=== PATIENT | female | born 1995 | race American Indian/Alaskan Native ===

== ENCOUNTER 2017-06-28 22:39 | Emergency (ER) | payer BC ==
[2017-06-28] MEDS ORDERED: TYLENOL ONE (23:49)
[2017-06-28] MEDS ORDERED: TYLENOL PO ONE (23:51)
[2017-06-29 00:05] LABS: Hematocrit 36.5 % (30.3-42.9); Hemoglobin 11.8 gm/dl (10.1-14.3); Mean Corpuscular HGB Conc 32 % (30-34); Mean Corpuscular Volume 80 fl (79-97); Platelet Count 246 K/mm3 (140-440); Red Blood Count 4.55 M/mm3 (3.65-5.03); Red Cell Distribution Width 15.4 % (13.2-15.2); White Blood Count 6.8 K/mm3 (4.5-11.0)
[2017-06-29 00:06] LABS: Mean Corpuscular Hemoglobin 26 pg (28-32)
--- NOTE | 2017-06-29 02:38 | Ultrasound Report ---
FINAL REPORT EXAM: US PELVIC COMPLETE HISTORY: vaginal bleeding states 6 weeks TECHNIQUE: Transabdominal and transvaginal sonography of the pelvis. PRIORS: None. FINDINGS: The uterus measures 6.6 x 4.1 x 5.4 cm and appears grossly unremarkable. The endometrial stripe measures 7 mm in AP dimension. No intrauterine fluid collection or IUP identified. The right ovary measures 2.5 x 1.7 x 1.7 cm and is grossly unremarkable. The left ovary measures 3.6 x 3.1 x 2.8 cm and contains probable prominent follicle measuring approximately 1.2 cm. Questionable, complex cystic focus in right adnexa interposed between uterus and right ovary measuring approximately 2 cm, nonspecific. No other adnexal masses or significant free peritoneal fluid. IMPRESSION: 1. No IUP identified and complex cystic focus in right adnexa, nonspecific. Possibilities include early gestation, early failure, or ectopic . Correlation with serial beta-hCG levels and follow-up ultrasound may help in further evaluation.
[2017-06-29 05:12] LABS: Anisocytosis 1+; Blastocytes % (Manual) 0 %; Diff Status Complete; Eosinophils % (Manual) 0 % (0.0-4.3); Large Platelets Rare
--- NOTE | 2017-06-29 10:08 | Emergency Department Report ---
HPI - General Chief Complaint: Vaginal Bleeding Time Seen by Provider: 06/29/17 10:03 - HPI HPI: Chief complaint: Vaginal bleeding This is a 22-year-old female who presented to the ED with vaginal bleeding, for 2 days. Patient stated that she took a test at home and it was positive. She stated the bleeding started on June 21. Initially stopped and started again 3 days prior to ER visit. Complain of mild pelvic discomfort, nausea. ED Past Medical Hx - Past Medical History Previous Medical History?: Yes Hx Congestive Heart Failure: No Hx Diabetes: No Hx Asthma: No Hx COPD: No Hx HIV: No Additional medical history: Chronic abdominal pain, pancreatitis - Surgical History Hx Cholecystectomy: Yes Additional Surgical History: Surgery was Sunday 08/26 - Family History Family history: hypertension - Social History Smoking Status: Never Smoker Substance Use Type: None - Medications Home Medications: Home Medications Medication Instructions Recorded Confirmed Last Taken Type Ondansetron [Zofran TAB] 4 mg PO Q8HR PRN #20 tablet 06/29/17 Unknown Rx ED Review of Systems ROS: Stated complaint: PREG/VAG BLEEDING/ABD PAIN Other details as noted in HPI Comment: All other systems reviewed and negative Constitutional: no symptoms reported Genitourinary: other (vaginal bleeding) Physical Exam - Physical Exam Vital Signs: Vital Signs 06/28/17 06/29/17 23:37 00:17 Temperature 98.5 F Pulse Rate 87 Respiratory 18 20 Rate Blood Pressure 122/79 O2 Sat by Pulse 100 Oximetry Physical Exam: Gen. alert and oriented 3 in no distress Head atraumatic normocephalic Eyes PERR LA EOMI Chest regular rate and rhythm normal S1-S2 lungs clear bilaterally Abdomen soft nondistended Back no point tenderness paravertebral tenderness Neuro no focal deficit. Psych normal mood. : Patient refused ED Course Vital Signs 06/28/17 06/29/17 23:37 00:17 Temperature 98.5 F Pulse Rate 87 Respiratory 18 20 Rate Blood Pressure 122/79 O2 Sat by Pulse 100 Oximetry ED Medical Decision Making - Lab Data Result diagrams: 06/28/17 23:48 Critical care attestation.: If time is entered above; I have spent that time in minutes in the direct care of this critically ill patient, excluding procedure time. ED Disposition Clinical Impression: Abnormal vaginal bleeding Disposition: DC-01 TO HOME OR SELFCARE Is pt being admited?: No Does the pt Need Aspirin: No Condition: Stable Prescriptions: Ondansetron [Zofran TAB] 4 mg PO Q8HR PRN #20 tablet PRN Reason: Nausea Referrals: ALEX MORALES MD [Primary Care Provider] - 3-5 Days KEVIN BYRD MD [Staff Physician] - 3-5 Days
[2017-06-29 10:36] VITALS: BP 103/59
== END 2017-06-29 11:46 | disposition home or self-care (01) ==
LOC: ED 22:39
DX: N93.8 Other specified abnormal uterine and vaginal bleeding (principal); Z88.8 Allergy status to other drugs, medicaments and biological substances
CPT/HCPCS: 36415; 76830; 76856; 84702; 85007; 85025; 86850; 86900; 86901

== ENCOUNTER 2017-08-05 14:57 | Emergency (ER) | payer BC ==
[2017-08-05 15:52] VITALS: BP 111/77
[2017-08-05 16:19] LABS: Basophils % (Auto) 0.6 % (0.0-1.8); Eosinophils % (Auto) 0.5 % (0.0-4.3); Hematocrit 35.3 % (30.3-42.9); Hemoglobin 11.2 gm/dl (10.1-14.3); Mean Corpuscular HGB Conc 32 % (30-34); Mean Corpuscular Volume 80 fl (79-97); Platelet Count 229 K/mm3 (140-440); Red Blood Count 4.41 M/mm3 (3.65-5.03); Red Cell Distribution Width 16.2 % (13.2-15.2); White Blood Count 6.1 K/mm3 (4.5-11.0)
[2017-08-05 16:24] LABS: Mean Corpuscular Hemoglobin 25 pg (28-32)
== END 2017-08-06 00:10 | disposition left against medical advice (07) ==
LOC: ED 14:57
DX: O03.9 Complete or unspecified spontaneous abortion without complication (principal); Z88.8 Allergy status to other drugs, medicaments and biological substances; Z3A.10 10 weeks gestation of pregnancy; Z53.21 Procedure and treatment not carried out due to patient leaving prior to being seen by health care provider
CPT/HCPCS: 36415; 84702; 85025

== ENCOUNTER 2017-11-24 16:45 | Emergency (ER) | payer BC ==
--- NOTE | 2017-11-24 17:19 | Emergency Department Report ---
Chief Complaint: Nausea/Vomiting/Diarrhea Stated Complaint: VOMITING Time Seen by Provider: 11/24/17 17:19 - HPI History of Present Illness: Patient reports that she is having abdominal pain for 2 days. Patient has a history of ovarian cyst that has been here for treatment in the past. She is reporting nausea with vomiting. Patient has emesis bag in her hand and she is stating that she is having abdominal pain to her lower abdomen 10 out of 10 crampy and achy. Pain is constant. Denies any diarrhea. Denies any vaginal bleeding or discharge. Patient has a history of chronic abdominal pain and pancreatitis. She's had her gallbladder removed in the past. Denies any fever or chills. Denies any urinary burning frequency or urgency. - ROS Review of Systems: All systems are negative unless stated in HPI above - Exam Vital Signs: Vital Signs 11/24/17 16:59 Temperature 98.9 F Pulse Rate 120 H Respiratory 20 Rate Blood Pressure 120/86 O2 Sat by Pulse 100 Oximetry Physical Exam: Gen.: This is a 22-year-old female that appears to be in mild distress she is bent over and holding her abdomen. Reported abdominal pain. She is nontoxic in appearance. CV: Tachycardic, she is with anxiety and crying. S1 and S2. No murmur. Regular rhythm Abdomen: Tender to palpate. Patient crying with palpation. Abdomen is flat, soft. No rigidity or distention. No CVA tenderness. Normal bowel sounds MSE screening note: Focused history and physical exam performed. Due to findings the following was ordered: given Zofran 4 mg IV in triage area for nausea ED Medical Decision Making - Medical Decision Making MDM: Patient screened by provider in triage area. Appropriate protocol initiated and patient to be seen in main ED by ED Disposition for MSE Condition: Stable
[2017-11-24] MEDS ORDERED: ZOFRAN IM ONE (17:20)
[2017-11-24 18:48] LABS: Basophils % (Auto) 0.7 % (0.0-1.8); Eosinophils % (Auto) 0.1 % (0.0-4.3); Hematocrit 33.5 % (30.3-42.9); Mean Corpuscular HGB Conc 33 % (30-34); Mean Corpuscular Volume 78 fl (79-97); Platelet Count 339 K/mm3 (140-440); Red Blood Count 4.32 M/mm3 (3.65-5.03); Red Cell Distribution Width 15.1 % (13.2-15.2); White Blood Count 7.3 K/mm3 (4.5-11.0)
[2017-11-24 18:54] LABS: Mean Corpuscular Hemoglobin 25 pg (28-32)
[2017-11-24 19:00] LABS: Alanine Aminotransferase 14 units/L (7-56); Albumin 4.4 g/dL (3.9-5); Albumin/Globulin Ratio 1.1 %; Alkaline Phosphatase 57 units/L (35-129); Anion Gap 22 mmol/L; BUN/Creatinine Ratio 11; Blood Urea Nitrogen 10 mg/dL (7-17); Calcium 9.9 mg/dL (8.4-10.2); Carbon Dioxide 24 mmol/L (22-30); Chloride 100.4 mmol/L (98-107); Glucose 125 mg/dL (65-100); Lipase 18 units/L (13-60); Potassium 3.3 mmol/L (3.6-5.0); Sodium 143 mmol/L (137-145); Total Protein 8.4 g/dL (6.3-8.2)
[2017-11-25] MEDS ORDERED: ZOFRAN ONE (05:02)
[2017-11-25] MEDS ORDERED: DILAUDID ONE (05:02)
[2017-11-25] MEDS ORDERED: NACL 0.9% 1000 ML 2,000 ML ONE (05:02)
[2017-11-25] MEDS ORDERED: ZOFRAN IV ONE ×2 (05:07→06:42)
[2017-11-25] MEDS ORDERED: DILAUDID IV ONE ×3 (05:07→10:23)
[2017-11-25] MEDS ORDERED: NACL 0.9% 1000 ML 1,000 ML IV ONE ×2 (05:07→06:10)
[2017-11-25] MEDS ORDERED: K-DUR PO ONE (06:43)
[2017-11-25] MEDS ORDERED: PEPCID IV ONE (06:43)
[2017-11-25] MEDS ORDERED: NACL ONE ×2 (06:57→07:16)
--- NOTE | 2017-11-25 07:01 | Emergency Department Report ---
ED Abdominal Pain HPI - General Chief Complaint: Nausea/Vomiting/Diarrhea Stated Complaint: VOMITING Time Seen by Provider: 11/24/17 17:19 Source: patient, old records reviewed (multiple visits in the past for chronic right-sided abdominal pain.) Mode of arrival: Ambulatory Limitations: No Limitations - History of Present Illness Initial Comments: 22-year-old female with a past medical history previous cholecystectomy and ERCP induced pancreatitis presents to the hospital with complaints of abdominal pain 2 days. Pain is in no suprapubic or right lower quadrant, right upper quadrant, and epigastric area. Pain is intermittent and described as stabbing, sharp, and kneading. Pain is worse with palpation and vomiting. No alleviating factors. Pain is moderate to severe in intensity. Most episodes of vomiting reported blood streaked. Patient also complains of diarrhea feels similar to when she was in the hospital and admitted with C. difficile. Subjective fever reported. No melena reported. No travel, recent antibiotic use, or sick contacts reported. Patient denies vaginal discharge but states she has irregular menstrual cycle. Patient was seen here in May 2017 with the diagnosis of , miscarriage, and right ovarian cyst. Severity scale (0 -10): 6 - Related Data Previous Rx's Medication Instructions Recorded Last Taken Type HYDROcodone/APAP 5-325 [[place] 1 each PO Q6HR PRN #12 tablet 11/25/17 Unknown Rx 5/325] Nitrofurantoin Monohyd/M-Cryst 100 mg PO BID #14 capsule 11/25/17 Unknown Rx [Macrobid 100 mg Capsule] Ondansetron [Zofran Odt] 4 mg PO Q8HR PRN #20 tab.rapdis 11/25/17 Unknown Rx Promethazine [Phenergan] 25 mg [place] Q6HR PRN #15 supp.rect 11/25/17 Unknown Rx traMADol [Ultram 50 MG tab] 50 mg PO Q6HR PRN #15 tablet 11/25/17 Unknown Rx Allergies Allergy/AdvReac Type Severity Reaction Status Date / Time hydrocodone Allergy Unknown Verified 08/05/17 15:46 oxycodone [Oxycodone] AdvReac Nausea Verified 08/05/17 15:46 ED Review of Systems ROS: Stated complaint: VOMITING Other details as noted in HPI Comment: All other systems reviewed and negative Other: Constitutional: As per HPI Eyes: No eye pain visual changes or discharge ENT: Dry mouth Neck: Denies pain Respiratory: Denies cough wheezing shortness of breath Cardiovascular: Denies chest pain, palpitations, syncope GI: As per HPI : Denies dysuria Musculoskeletal: Denies back pain, joint swelling Skin: Denies rash, lesions, erythema Neurologic: Denies headache, numbness, weakness Psychiatric: Denies suicidal ideation, hallucinations ED Past Medical Hx - Past Medical History Previous Medical History?: Yes Hx Congestive Heart Failure: No Hx Diabetes: No Hx Asthma: No Hx COPD: No Hx HIV: No Additional medical history: Chronic abdominal pain, pancreatitis - Surgical History Past Surgical History?: Yes Hx Cholecystectomy: Yes Additional Surgical History: Surgery was Sunday 08/26 - Social History Smoking Status: Never Smoker Substance Use Type: Alcohol, Prescribed - Medications Home Medications: Home Medications Medication Instructions Recorded Confirmed Last Taken Type HYDROcodone/APAP 5-325 [[place] 1 each PO Q6HR PRN #12 tablet 11/25/17 Unknown Rx 5/325] Nitrofurantoin Monohyd/M-Cryst 100 mg PO BID #14 capsule 11/25/17 Unknown Rx [Macrobid 100 mg Capsule] Ondansetron [Zofran Odt] 4 mg PO Q8HR PRN #20 tab.rapdis 11/25/17 Unknown Rx Promethazine [Phenergan] 25 mg [place] Q6HR PRN #15 supp.rect 11/25/17 Unknown Rx traMADol [Ultram 50 MG tab] 50 mg PO Q6HR PRN #15 tablet 11/25/17 Unknown Rx ED Physical Exam - General Limitations: No Limitations - Other Other exam information: General: No limitations, patient is alert in no acute distress Head exam: Atraumatic, normocephalic Eyes exam: Normal appearance, nonicteric sclerae ENT: Dry mucous membranes Neck exam: Normal inspection, full range of motion, no meningismus nontender Respiratory exam: Clear to auscultation bilateral, no wheezes, rales, crackles Cardiovascular: Normal rate and rhythm, normal heart sounds Abdomen: Soft, nondistended, and nontender, increased bowel sounds. No rebound or guarding. Tenderness at the suprapubic, right lower quadrant, question, with maximal tenderness in the epigastric area. Extremity: Full range of motion normal inspection no deformity Back: Normal Inspection, full range of motion, no tenderness Neurologic: Alert, oriented x3, cranial nerves intact, no motor or sensory deficit Psychiatric: normal affect, normal mood Skin: Warm, dry, intact ED Course Vital Signs 11/24/17 11/25/17 11/25/17 16:59 00:51 04:30 Temperature 98.9 F 99.5 F 98.4 F Pulse Rate 120 H 93 H 85 Respiratory 20 16 16 Rate Blood Pressure 120/86 140/89 Blood Pressure 132/64 [Left] O2 Sat by Pulse 100 99 99 Oximetry 11/25/17 11/25/17 11/25/17 05:00 06:00 06:30 Temperature Pulse Rate Respiratory Rate Blood Pressure 130/84 117/59 107/53 Blood Pressure [Left] O2 Sat by Pulse 100 99 99 Oximetry 11/25/17 07:30 Temperature Pulse Rate Respiratory 16 Rate Blood Pressure Blood Pressure [Left] O2 Sat by Pulse Oximetry - Reevaluation(s) Reevaluation #1: 11/25/17 07:00 Patient received normal saline, Dilaudid, and Zofran prior to my evaluation with improvement in symptoms but they persist. Addition Dilaudid and Zofran ordered. Normal saline in progress. Pepcid also initiated gastric pain and report of blood-streaked vomit 11/25/17 09:22 Patient appears to be very comfortable but requesting more pain medication even though she states her pain is mild at this time. She will be given pain medication prior to discharge. Patient is tolerating by mouth ED Medical Decision Making - Lab Data Result diagrams: 11/24/17 18:03 11/24/17 18:03 Lab Results 11/24/17 11/24/17 11/24/17 Range/Units 18:03 18:03 18:03 WBC 7.3 (4.5-11.0) K/mm3 RBC 4.32 (3.65-5.03) M/mm3 Hgb 11.0 (10.1-14.3) gm/dl Hct 33.5 (30.3-42.9) % MCV 78 L (79-97) fl MCH 25 L (28-32) pg MCHC 33 (30-34) % RDW 15.1 (13.2-15.2) % Plt Count 339 (140-440) K/mm3 Lymph % (Auto) 22.7 (13.4-35.0) % [place] % (Auto) 6.4 (0.0-7.3) % Eos % (Auto) 0.1 (0.0-4.3) % Baso % (Auto) 0.7 (0.0-1.8) % Lymph # 1.7 (1.2-5.4) K/mm3 [place] # 0.5 (0.0-0.8) K/mm3 Eos # 0.0 (0.0-0.4) K/mm3 Baso # 0.1 (0.0-0.1) K/mm3 Seg Neutrophils % 70.1 H (40.0-70.0) % Seg Neutrophils # 5.1 (1.8-7.7) K/mm3 Sodium 143 (137-145) mmol/L Potassium 3.3 L (3.6-5.0) mmol/L Chloride 100.4 (98-107) mmol/L Carbon Dioxide 24 (22-30) mmol/L Anion Gap 22 mmol/L BUN 10 (7-17) mg/dL Creatinine 0.9 (0.7-1.2) mg/dL Estimated GFR > 60 ml/min BUN/Creatinine Ratio 11 % Glucose 125 H (65-100) mg/dL Calcium 9.9 (8.4-10.2) mg/dL Total Bilirubin 0.20 (0.1-1.2) mg/dL AST 20 (5-40) units/L ALT 14 (7-56) units/L Alkaline Phosphatase 57 (35-129) units/L Total Protein 8.4 H (6.3-8.2) g/dL Albumin 4.4 (3.9-5) g/dL Albumin/Globulin Ratio 1.1 % Lipase 18 (13-60) units/L HCG, Qual Negative (Negative) - Radiology Data Radiology results: report reviewed CT pelvis IV contrast: Prominent air fluid level within the common bile duct status post remote cholecystectomy. Left hepatic sectoraials pneumobilia which is similar to 01/12/2015 exam. - Medical Decision Making Patient has chronic pneumobilia compared to previous CT 2 years ago. LFTs, white count, and other labs are unremarkable. Patient apparently has a history of chronic abdominal pain with intermittent ER visits but has not presented here on a regular basis for abdominal pain since 2014. Pain and nausea controlled in the ED Patient reports that her allergy to oxycodone and hydrocodone is nausea. She has not taken them in several years and is willing to be try the medication with nausea medication. She'll be prescribed hydrocodone with Phenergan and Zofran medication. She will also be prescribed tramadol which she states she has been in to tolerate in the past Macrobid was given in the ED and will be prescribed for urinary leukocytosis. - Differential Diagnosis gastroenteritis, appendicitis, pancreatitis, hepatitis, gastritis, ovarian Critical Care Time: No Critical care attestation.: If time is entered above; I have spent that time in minutes in the direct care of this critically ill patient, excluding procedure time. ED Disposition Clinical Impression: Abdominal pain, Gastroenteritis, UTI (urinary tract infection), Dehydration Disposition: TO HOME OR SELFCARE Is pt being admited?: No Does the pt Need Aspirin: No Condition: Stable Instructions: Urinary Tract Infection in Women (ED), Gastroenteritis (ED), Abdominal Pain (ED) Additional Instructions: Take the medication as prescribed. Return is symptoms worsen. Follow-up with the GI doctor and your primary care doctor. Prescriptions: HYDROcodone/APAP 5-325 [[place] 5/325] 1 each PO Q6HR PRN #12 tablet PRN Reason: Pain Nitrofurantoin Monohyd/M-Cryst [Macrobid 100 mg Capsule] 100 mg PO BID #14 capsule Ondansetron [Zofran Odt] 4 mg PO Q8HR PRN #20 tab.rapdis PRN Reason: Nausea And Vomiting Promethazine [Phenergan] 25 mg [place] Q6HR PRN #15 supp.rect PRN Reason: Nausea And Vomiting traMADol [Ultram 50 MG tab] 50 mg PO Q6HR PRN #15 tablet PRN Reason: Pain Referrals: TIAGO NUNES MD [Staff Physician] - 3-5 Days Time of Disposition: 10:46
--- NOTE | 2017-11-25 08:02 | Cat Scan Report ---
FINAL REPORT EXAM: CT ABDOMEN PELVIS W CON HISTORY: rlq, ruq, epigastric pain, hx of cholecystectomy TECHNIQUE: CT images are acquired through the Abdomen and Pelvis arterial and delayed phases following intravenous administration of contrast. Transaxial, coronal and sagittal reformations are provided. PRIORS: 11/11/2015 FINDINGS: Partially visualized intrathoracic contents are unremarkable. Air-fluid level within the common bile duct status post cholecystectomy. There is left hepatic sectorials pneumobilia, which is similar to 01/12/2015 exam. There is a 2.4 cm round enhancing mass in the right liver on axial series 3, image 58. A smaller but similar mass measuring up to 16 millimeters is present on axial image 29. The pancreas, spleen, and adrenal glands are unremarkable. Kidneys show no worrisome lesions, hydronephrosis, or calculi. Urinary bladder is unremarkable. Small and large bowel are normal in caliber. Appendix is normal. No free air, free fluid, or lymphadenopathy identified. Aorta is normal in course and caliber. Anteverted uterus. Small volume of free fluid in the pelvis is likely physiologic. Superficial soft tissues are remarkable for umbilical jewelry. No acute or aggressive appearing skeletal findings. IMPRESSION: Prominent air-fluid level within the common bile duct status post remote cholecystectomy. Correlation for cholangitis is requested. There are 2 round enhancing masses in the right liver measuring up to 2.4 cm. Most likely differential considerations are hemangiomas and adenomas. Contrast-enhanced MRI follow-up is suggested.
[2017-11-25 08:42] LABS: Bacteria,Urine 1+ /HPF (Negative); Bilirubin,Urine NEG (Negative); Blood,Urine SM (Negative); Ketones,Urine 20 mg/dL (Negative); Leukocyte Esterase,Urine NEG (Negative); Mucus,Urine 2+ /HPF; Nitrite,Urine NEG (Negative); Urobilinogen,Urine < 2.0 mg/dL (<2.0)
[2017-11-25] MEDS ORDERED: MACROBID PO ONE (08:49)
[2017-11-25] MEDS ORDERED: D5NS 1,000 ML IV SCH (09:00)
[2017-11-25 11:30] VITALS: BP 112/68
== END 2017-11-25 11:31 | disposition home or self-care (01) ==
LOC: ED 16:45
DX: K52.9 Noninfective gastroenteritis and colitis, unspecified (principal); E86.0 Dehydration; N39.0 Urinary tract infection, site not specified; R10.13 Epigastric pain; K85.90 Acute pancreatitis without necrosis or infection, unspecified; Z88.8 Allergy status to other drugs, medicaments and biological substances
CPT/HCPCS: 36415; 74177; 80053; 81001; 82962; 83690; 84703; 85025; 87086; 96361; 96372; 96374; 96375; 96376; 99284; J1170; J2405; J7030; J7042; Q9967

== ENCOUNTER 2017-11-27 17:50 | Inpatient (IN) | payer BC ==
[2017-11-27 18:21] LABS: Basophils % (Auto) 0.4 % (0.0-1.8); Eosinophils % (Auto) 0.1 % (0.0-4.3); Hematocrit 40.6 % (30.3-42.9); Hemoglobin 13.4 gm/dl (10.1-14.3); Lymphocytes # (Auto) 2.8 K/mm3 (1.2-5.4); Lymphocytes % (Auto) 27.3 % (13.4-35.0); Mean Corpuscular HGB Conc 33 % (30-34); Mean Corpuscular Volume 77 fl (79-97); Monocytes # (Auto) 1.1 K/mm3 (0.0-0.8); Monocytes % (Auto) 10.8 % (0.0-7.3); Platelet Count 347 K/mm3 (140-440); Red Blood Count 5.25 M/mm3 (3.65-5.03); Red Cell Distribution Width 15.6 % (13.2-15.2)
[2017-11-27 18:22] LABS: Mean Corpuscular Hemoglobin 26 pg (28-32)
[2017-11-27 18:38] LABS: Alanine Aminotransferase 92 units/L (7-56); Albumin 4.5 g/dL (3.9-5); BUN/Creatinine Ratio 11; Blood Urea Nitrogen 9 mg/dL (7-17); Calcium 9.7 mg/dL (8.4-10.2); Hemolysis Index 11; Lipase 18 units/L (13-60)
[2017-11-27] MEDS ORDERED: TRIDIL DRIP 50MG/250ML 50 MG/250 ML BOTTLE ONE (20:44)
[2017-11-27] MEDS ORDERED: ZOFRAN IV ONE (20:57)
[2017-11-27] MEDS ORDERED: REGLAN IV ONE (20:57)
[2017-11-27] MEDS ORDERED: BENADRYL IV ONE (20:57)
[2017-11-27] MEDS ORDERED: DILAUDID IV ONE (20:58)
[2017-11-27] MEDS ORDERED: K-DUR PO ONE ×2 (20:59→21:37)
[2017-11-27] MEDS ORDERED: D5NS 1,000 ML IV SCH ×2 (21:00)
--- NOTE | 2017-11-27 21:17 | Emergency Department Report ---
ED Abdominal Pain HPI - General Chief Complaint: Abdominal Pain Stated Complaint: N/V Time Seen by Provider: 11/27/17 20:56 Source: patient, old records reviewed Mode of arrival: Wheelchair Limitations: No Limitations - History of Present Illness Initial Comments: 22-year-old female with a past medical history previous cholecystectomy and ERCP induced pancreatitis presents to the hospital with complaints of abdominal pain, nausea, vomiting, and diarrhea 4 days. Patient was seen here by me on the for similar symptoms. CT abdomen and pelvis did not reveal any acute findings. Patient's symptoms improved prior to discharge she was discharged on [place], Macrobid, Zofran, Phenergan, and tramadol. Patient was not able afford the rectal Phenergan but was able to fill the rest of the medication. Despite taking these medications and patient continues to have nausea, vomiting, and by mouth intolerance. Patient complains of generalized weakness. Continues to have right-sided abdominal tenderness. There is complaints of hematemesis and melena. No fever reported prior to arrival. - Related Data Previous Rx's Medication Instructions Recorded Last Taken Type HYDROcodone/APAP 5-325 [[place] 1 each PO Q6HR PRN #12 tablet 11/25/17 Unknown Rx 5/325] Nitrofurantoin Monohyd/M-Cryst 100 mg PO BID #14 capsule 11/25/17 Unknown Rx [Macrobid 100 mg Capsule] Ondansetron [Zofran Odt] 4 mg PO Q8HR PRN #20 tab.rapdis 11/25/17 Unknown Rx Promethazine [Phenergan] 25 mg [place] Q6HR PRN #15 supp.rect 11/25/17 Unknown Rx traMADol [Ultram 50 MG tab] 50 mg PO Q6HR PRN #15 tablet 11/25/17 Unknown Rx Allergies Allergy/AdvReac Type Severity Reaction Status Date / Time hydrocodone Allergy Unknown Verified 08/05/17 15:46 oxycodone [Oxycodone] AdvReac Nausea Verified 08/05/17 15:46 ED Review of Systems ROS: Stated complaint: N/V Other details as noted in HPI Comment: All other systems reviewed and negative Other: Constitutional: No fevers chills Eyes: No eye pain visual changes ENT: No ear pain or throat pain Neck: Denies pain Respiratory: Denies cough wheezing shortness of breath Cardiovascular: Denies chest pain, palpitations, syncope GI: As per HPI : Denies dysuria Musculoskeletal: Denies back pain Skin: Denies rash, lesions, erythema Neurologic: Denies headache, numbness, weakness Psychiatric: Denies suicidal ideation, hallucinations ED Past Medical Hx - Past Medical History Hx Congestive Heart Failure: No Hx Diabetes: No Hx Asthma: No Hx COPD: No Hx HIV: No Additional medical history: Chronic abdominal pain, pancreatitis - Surgical History Hx Cholecystectomy: Yes Additional Surgical History: Surgery was Sunday 08/26 - Social History Smoking Status: Never Smoker Substance Use Type: None - Medications Home Medications: Home Medications Medication Instructions Recorded Confirmed Last Taken Type HYDROcodone/APAP 5-325 [[place] 1 each PO Q6HR PRN #12 tablet 11/25/17 Unknown Rx 5/325] Nitrofurantoin Monohyd/M-Cryst 100 mg PO BID #14 capsule 11/25/17 Unknown Rx [Macrobid 100 mg Capsule] Ondansetron [Zofran Odt] 4 mg PO Q8HR PRN #20 tab.rapdis 11/25/17 Unknown Rx Promethazine [Phenergan] 25 mg [place] Q6HR PRN #15 supp.rect 11/25/17 Unknown Rx traMADol [Ultram 50 MG tab] 50 mg PO Q6HR PRN #15 tablet 11/25/17 Unknown Rx ED Physical Exam - General Limitations: No Limitations - Other Other exam information: General: No limitations Head exam: Atraumatic, normocephalic Eyes exam: Normal appearance, nonicteric sclera ENT: Dry mucous membrane Neck exam: Normal inspection, full range of motion, no meningismus nontender Respiratory exam: Clear to auscultation bilateral, no wheezes, rales, crackles Cardiovascular: Tachycardia, regular rhythm Abdomen: Soft, nondistended, epigastric, right upper quadrant, right lower quadrant tenderness, with normal bowel sounds, no rebound, or guarding Extremity: Full range of motion normal inspection no deformity Back: Normal Inspection, full range of motion, no tenderness Neurologic: Alert, oriented x3, cranial nerves intact, no motor or sensory deficit Psychiatric: normal affect, normal mood Skin: Warm, dry, intact ED Course Vital Signs 11/27/17 18:01 Temperature 100.1 F H Pulse Rate 114 H Respiratory 18 Rate Blood Pressure 141/70 O2 Sat by Pulse 98 Oximetry - Reevaluation(s) Reevaluation #1: 11/27/17 21:21 D5 normal saline 2 L, Benadryl, Reglan, and Zofran ordered ED Medical Decision Making - Lab Data Result diagrams: 11/27/17 18:06 11/27/17 18:06 Lab Results 11/27/17 11/27/17 11/27/17 Range/Units 18:06 18:06 18:06 WBC 10.4 (4.5-11.0) K/mm3 RBC 5.25 H (3.65-5.03) M/mm3 Hgb 13.4 (10.1-14.3) gm/dl Hct 40.6 (30.3-42.9) % MCV 77 L (79-97) fl MCH 26 L (28-32) pg MCHC 33 (30-34) % RDW 15.6 H (13.2-15.2) % Plt Count 347 (140-440) K/mm3 Lymph % (Auto) 27.3 (13.4-35.0) % [place] % (Auto) 10.8 H (0.0-7.3) % Eos % (Auto) 0.1 (0.0-4.3) % Baso % (Auto) 0.4 (0.0-1.8) % Lymph # 2.8 (1.2-5.4) K/mm3 [place] # 1.1 H (0.0-0.8) K/mm3 Eos # 0.0 (0.0-0.4) K/mm3 Baso # 0.0 (0.0-0.1) K/mm3 Seg Neutrophils % 61.4 (40.0-70.0) % Seg Neutrophils # 6.4 (1.8-7.7) K/mm3 Sodium 140 (137-145) mmol/L Potassium 3.0 L (3.6-5.0) mmol/L Chloride 94.8 L (98-107) mmol/L Carbon Dioxide 25 (22-30) mmol/L Anion Gap 23 mmol/L BUN 9 (7-17) mg/dL Creatinine 0.8 (0.7-1.2) mg/dL Estimated GFR > 60 ml/min BUN/Creatinine Ratio 11 % Glucose 110 H (65-100) mg/dL Calcium 9.7 (8.4-10.2) mg/dL Total Bilirubin 0.60 (0.1-1.2) mg/dL AST 66 H (5-40) units/L ALT 92 H (7-56) units/L Alkaline Phosphatase 67 (35-129) units/L Total Protein 8.7 H (6.3-8.2) g/dL Albumin 4.5 (3.9-5) g/dL Albumin/Globulin Ratio 1.1 % Lipase 18 (13-60) units/L HCG, Qual Negative (Negative) - Radiology Data ct report from 11/25 reviewed - Medical Decision Making Plan to admit patient for intractable nausea and vomiting with associated tachycardia, hypokalemia, and dehydration. Patient has failed outpatient management. Repeat imaging has not been performed since patient had imaging 2 days ago without acute findings. No signs of leukocytosis. Patient complains of vomiting blood and melena however, brown stool guaiac that is guaiac negative on exam. Also H&H stable and therefore not suggestive of active significant blood loss Awaiting repeat UA collection - Differential Diagnosis gastroparesis, gastroenteritis, cyclic vomiting syndrome, gastritis Critical Care Time: No Critical care attestation.: If time is entered above; I have spent that time in minutes in the direct care of this critically ill patient, excluding procedure time. ED Disposition Clinical Impression: Intractable nausea and vomiting, Abdominal pain, Failure of outpatient treatment, Diarrhea, Dehydration, Hypokalemia Disposition: OP ADMIT IP TO THIS HOSP Is pt being admited?: Yes Condition: Stable Time of Disposition: 21:16 (Dr nix/hosp)
[2017-11-27] MEDS ORDERED: PEPCID IV ONE ×2 (21:24→21:37)
[2017-11-28] MEDS ORDERED: ZOFRAN IV PRN ×2 (01:51→04:33)
[2017-11-28] MEDS: MORPHINE IV PRN ×2 (02:09→05:42)
[2017-11-28] MEDS ORDERED: REGLAN IV ONE (03:38)
--- NOTE | 2017-11-28 04:23 | History and Physical Report ---
History of Present Illness Date of examination: 11/28/17 Date of admission: 11/27/17 21:17 Chief complaint: Abdominal pain nausea vomiting History of present illness: 22-year-old female with a past medical history previous cholecystectomy and ERCP induced pancreatitis presents to the hospital with complaints of abdominal pain, nausea, vomiting, and diarrhea 4 days. Patient was seen here by me on the for similar symptoms. CT abdomen and pelvis did not reveal any acute findings. Patient's symptoms improved prior to discharge she was discharged on [place], Macrobid, Zofran, Phenergan, and tramadol. Patient was not able afford the rectal Phenergan but was able to fill the rest of the medication. Despite taking these medications and patient continues to have nausea, vomiting, and by mouth intolerance. Patient complains of generalized weakness. Continues to have right-sided abdominal tenderness. There is complaints of hematemesis and melena. No fever reported prior to arrival. Past History Past Medical History: other (Chronic abdominal pain, pancreatitis) Past Surgical History: cholecystectomy, Other (cholecystectomy (complicated by bile leak and the need for papillotomy and temporary bile duct stent placement)) Social history: full code. denies: smoking, alcohol abuse, IV drug use Family history: no significant family history Medications and Allergies Allergies Allergy/AdvReac Type Severity Reaction Status Date / Time hydrocodone Allergy Unknown Verified 08/05/17 15:46 oxycodone [Oxycodone] AdvReac Nausea Verified 08/05/17 15:46 Home Medications Medication Instructions Recorded Confirmed Last Taken Type HYDROcodone/APAP 5-325 [[place] 1 each PO Q6HR PRN #12 tablet 11/25/17 11/27/17 Rx 5/325] Nitrofurantoin Monohyd/M-Cryst 100 mg PO BID #14 capsule 11/25/17 11/27/1711/26 Rx [Macrobid 100 mg Capsule] Ondansetron [Zofran Odt] 4 mg PO Q8HR PRN #20 tab.rapdis 11/25/17 11/27/1711/26 Rx traMADol [Ultram 50 MG tab] 50 mg PO Q6HR PRN #15 tablet 11/25/17 11/27/1711/26 Rx Active Meds: Active Medications Dextrose/Sodium Chloride (D5ns) 1,000 mls @ 999 mls/hr IV DIRECT SARAY Last Admin: 11/27/17 21:32 Dose: 999 mls/hr Morphine Sulfate (Morphine) 2 mg IV Q4H PRN PRN Reason: Pain, Moderate (4-6) Last Admin: 11/28/17 02:09 Dose: 2 mg Ondansetron HCl (Zofran) 4 mg IV Q6H PRN PRN Reason: Nausea And Vomiting Last Admin: 11/28/17 02:22 Dose: 4 mg Review of Systems All systems: negative Exam - Physical Exam Narrative exam: General: No limitations Head exam: Atraumatic, normocephalic Eyes exam: Normal appearance, nonicteric sclera ENT: Dry mucous membrane Neck exam: Normal inspection, full range of motion, no meningismus nontender Respiratory exam: Clear to auscultation bilateral, no wheezes, rales, crackles Cardiovascular: Tachycardia, regular rhythm Abdomen: Soft, nondistended, epigastric, right upper quadrant, right lower quadrant tenderness, with normal bowel sounds, no rebound, or guarding Extremity: Full range of motion normal inspection no deformity Back: Normal Inspection, full range of motion, no tenderness Neurologic: Alert, oriented x3, cranial nerves intact, no motor or sensory deficit Psychiatric: normal affect, normal mood Skin: Warm, dry, intact - Constitutional Vitals: Temp Pulse Resp BP Pulse Ox 98.7 F 110 H 20 140/91 100 11/27/17 20:04 11/27/17 20:04 11/28/17 02:39 11/27/17 20:04 11/27/17 20:04 Results - Labs CBC & Chem 7: 11/27/17 18:06 11/27/17 18:06 Labs: Laboratory Last Values WBC 10.4 K/mm3 (4.5-11.0) 11/27/17 18:06 RBC 5.25 M/mm3 (3.65-5.03) H 11/27/17 18:06 Hgb 13.4 gm/dl (10.1-14.3) 11/27/17 18:06 Hct 40.6 % (30.3-42.9) 11/27/17 18:06 MCV 77 fl (79-97) L 11/27/17 18:06 MCH 26 pg (28-32) L 11/27/17 18:06 MCHC 33 % (30-34) 11/27/17 18:06 RDW 15.6 % (13.2-15.2) H 11/27/17 18:06 Plt Count 347 K/mm3 (140-440) 11/27/17 18:06 Lymph % (Auto) 27.3 % (13.4-35.0) 11/27/17 18:06 [place] % (Auto) 10.8 % (0.0-7.3) H 11/27/17 18:06 Eos % (Auto) 0.1 % (0.0-4.3) 11/27/17 18:06 Baso % (Auto) 0.4 % (0.0-1.8) 11/27/17 18:06 Lymph # 2.8 K/mm3 (1.2-5.4) 11/27/17 18:06 [place] # 1.1 K/mm3 (0.0-0.8) H 11/27/17 18:06 Eos # 0.0 K/mm3 (0.0-0.4) 11/27/17 18:06 Baso # 0.0 K/mm3 (0.0-0.1) 11/27/17 18:06 Seg Neutrophils % 61.4 % (40.0-70.0) 11/27/17 18:06 Seg Neutrophils # 6.4 K/mm3 (1.8-7.7) 11/27/17 18:06 Sodium 140 mmol/L (137-145) 11/27/17 18:06 Potassium 3.0 mmol/L (3.6-5.0) L 11/27/17 18:06 Chloride 94.8 mmol/L (98-107) L 11/27/17 18:06 Carbon Dioxide 25 mmol/L (22-30) 11/27/17 18:06 Anion Gap 23 mmol/L 11/27/17 18:06 BUN 9 mg/dL (7-17) 11/27/17 18:06 Creatinine 0.8 mg/dL (0.7-1.2) 11/27/17 18:06 Estimated GFR > 60 ml/min 11/27/17 18:06 BUN/Creatinine Ratio 11 % 11/27/17 18:06 Glucose 110 mg/dL (65-100) H 11/27/17 18:06 Calcium 9.7 mg/dL (8.4-10.2) 11/27/17 18:06 Magnesium 1.40 mg/dL (1.7-2.3) L 11/27/17 18:06 Total Bilirubin 0.60 mg/dL (0.1-1.2) 11/27/17 18:06 AST 66 units/L (5-40) H 11/27/17 18:06 ALT 92 units/L (7-56) H 11/27/17 18:06 Alkaline Phosphatase 67 units/L (35-129) 11/27/17 18:06 Total Protein 8.7 g/dL (6.3-8.2) H 11/27/17 18:06 Albumin 4.5 g/dL (3.9-5) 11/27/17 18:06 Albumin/Globulin Ratio 1.1 % 11/27/17 18:06 Lipase 18 units/L (13-60) 11/27/17 18:06 HCG, Qual Negative (Negative) 11/27/17 18:06 Assessment and Plan Assessment and plan: Assessment and plan - * intractable nausea and vomiting - differential includes gastroparesis, gastroenteritis, cyclic vomiting syndrome, gastritis * Abdominal pain * tachycardia * hypokalemia, and * dehydration. Plan - Admitted to medical floor with telemetry IV fluids and pain medicines for symptomatic conservative management Patient has failed outpatient management. Repeat imaging has not been performed since patient had imaging 2 days ago without acute findings. No signs of leukocytosis. Patient complains of vomiting blood and melena however, brown stool that is guaiac negative on exam. Also H&H stable and therefore not suggestive of active significant blood loss Awaiting repeat UA collection Monitor CBC and electrolytes Replace electrolytes when necessary as per protocol DVT GI prophylaxis as ordered Monitor and follow the patient closely VTE prophylaxis?: Chemical, Mechanical Plan of care discussed with patient/family: Yes
[2017-11-28] MEDS ORDERED: PERCOCET 5/325 PO PRN (04:29)
[2017-11-28] MEDS ORDERED: PHENERGAN PR PRN (04:29)
[2017-11-28] MEDS ORDERED: PROVENTIL IH PRN (04:29)
[2017-11-28] MEDS ORDERED: DULCOLAX PR PRN (04:29)
[2017-11-28] MEDS ORDERED: MILK OF MAGNESIA PO PRN (04:29)
[2017-11-28] MEDS ORDERED: TYLENOL PO PRN (04:29)
[2017-11-28] MEDS ORDERED: AMBIEN PO PRN (04:29)
[2017-11-28] MEDS ORDERED: ULTRAM PO PRN (04:33)
[2017-11-28] MEDS: D5W/0.45% NACL/KCL 20 MEQ 20 MEQ/1,000 ML BAG IV SCH ×3 (05:42→22:23)
[2017-11-28 06:13] LABS: Basophils % (Auto) 0.3 % (0.0-1.8); Eosinophils % (Auto) 0.1 % (0.0-4.3); Hematocrit 36.7 % (30.3-42.9); Hemoglobin 11.9 gm/dl (10.1-14.3); Lymphocytes # (Auto) 2.5 K/mm3 (1.2-5.4); Lymphocytes % (Auto) 27.9 % (13.4-35.0); Mean Corpuscular HGB Conc 33 % (30-34); Mean Corpuscular Volume 77 fl (79-97); Monocytes # (Auto) 1.2 K/mm3 (0.0-0.8); Monocytes % (Auto) 13.1 % (0.0-7.3); Platelet Count 287 K/mm3 (140-440); Red Blood Count 4.77 M/mm3 (3.65-5.03); Red Cell Distribution Width 15.3 % (13.2-15.2)
[2017-11-28 06:20] LABS: Mean Corpuscular Hemoglobin 25 pg (28-32)
[2017-11-28 06:29] LABS: Alanine Aminotransferase 80 units/L (7-56); Albumin 3.9 g/dL (3.9-5); BUN/Creatinine Ratio 9; Blood Urea Nitrogen 6 mg/dL (7-17); Calcium 8.8 mg/dL (8.4-10.2); Hemolysis Index 2
[2017-11-28] MEDS ORDERED: DILAUDID IV ONE (09:15)
--- NOTE | 2017-11-28 09:25 | Event Note ---
Date: 11/28/17 Patient admitted for intractable nausea and vomiting, check consisted, MR abdomen ordered. Continue management per H/P.
[2017-11-28] MEDS: PEPCID IV SCH ×2 (09:43→21:10)
[2017-11-28] MEDS ORDERED: DILAUDID IV NR (10:00)
--- NOTE | 2017-11-28 12:20 | Gastroenterology Consultation ---
History of Present Illness - Reason for Consult Consult date: 11/28/17 Nausea, vomiting and elevated LFTs Requesting physician: CAROL ANN BOYKIN - History of Present Illness The patient is a 22 year old female known to me for whom consultation was requested for persistent n/v and mildly elevated LFTs. I last saw her in 2012 at which time she had a bile leak post lap yeni due to a CBD stone. She had ERCP, papillotomy with a stent placed successfully. She had mild post ERCP pancreatitis, but generally faired well. The patient saw my associate in 2014 for recurrent n/v and underwent EGD revealing mild gastritis only. She had recurrent nausea and vomiting starting several days ago. AST and ALT were mildly elevated. Lipase was normal. MRCP has been ordered. She has felt better overnight. Patient denies ETOH and tobacco use. No history of chronic use of marijuana. No prior PUD. Past History Past Medical History: other (Chronic abdominal pain, pancreatitis) Past Surgical History: cholecystectomy, Other (cholecystectomy (complicated by bile leak and the need for papillotomy and temporary bile duct stent placement)) Social history: full code. denies: smoking, alcohol abuse, IV drug use Family history: no significant family history Medications and Allergies Allergies Allergy/AdvReac Type Severity Reaction Status Date / Time hydrocodone Allergy Unknown Verified 08/05/17 15:46 oxycodone [Oxycodone] AdvReac Nausea Verified 08/05/17 15:46 Home Medications Medication Instructions Recorded Confirmed Last Taken Type HYDROcodone/APAP 5-325 [[place] 1 each PO Q6HR PRN #12 tablet 11/25/17 11/27/17 Rx 5/325] Nitrofurantoin Monohyd/M-Cryst 100 mg PO BID #14 capsule 11/25/17 11/27/1711/26 Rx [Macrobid 100 mg Capsule] Ondansetron [Zofran Odt] 4 mg PO Q8HR PRN #20 tab.rapdis 11/25/17 11/27/1711/26 Rx traMADol [Ultram 50 MG tab] 50 mg PO Q6HR PRN #15 tablet 11/25/17 11/27/1711/26 Rx Active Meds: Active Medications Acetaminophen (Tylenol) 650 mg PO Q4H PRN PRN Reason: Pain MILD(1-3)/Fever >100.5/GOODRICH Albuterol (Proventil) 2.5 mg IH Q4HRT PRN PRN Reason: Shortness Of Breath Bisacodyl (Dulcolax) 10 mg NM QDAY PRN PRN Reason: Constipation unrelieved by MOM Famotidine (Pepcid) 20 mg IV BID [facility] Last Admin: 11/28/17 09:43 Dose: 20 mg Hydromorphone HCl (Dilaudid) 1 mg IV Q4HR PRN PRN Reason: Severe Pain Dextrose/Sodium Chloride (D5ns) 1,000 mls @ 999 mls/hr IV DIRECT SARAY Last Admin: 11/27/17 21:32 Dose: 999 mls/hr Potassium Chloride/Dextrose/Sod Cl (D5w/0.45% Nacl/Kcl 20 Meq) 20 meq in 1,000 mls @ 150 mls/hr IV DIRECT SARAY Last Admin: 11/28/17 09:42 Dose: 150 mls/hr Magnesium Hydroxide (Milk Of Magnesia) 30 ml PO Q4H PRN PRN Reason: Constipation Metoclopramide HCl (Reglan) 10 mg IV Q6H PRN PRN Reason: Nausea And Vomiting Ondansetron HCl (Zofran) 8 mg IV Q6H PRN PRN Reason: Nausea And Vomiting Last Admin: 11/28/17 09:35 Dose: 8 mg Oxycodone/Acetaminophen (Percocet 5/325) 1 tab PO Q6H PRN PRN Reason: Pain, Moderate (4-6) Promethazine HCl (Phenergan) 25 mg NM Q6H PRN PRN Reason: N/V IF NPO AND NO IV ACCESS Tramadol HCl (Ultram) 50 mg PO Q6H PRN PRN Reason: Pain Zolpidem Tartrate (Ambien) 5 mg PO QHS PRN PRN Reason: Insomnia Review of Systems - Review of Systems Constitutional: no weight loss, no weight gain Eyes: no change in vision Ears, Nose, Throat: no decreased hearing, no difficulty swallowing, no epistaxis Breasts: deferred Cardiovascular: no chest pain, no shortness of breath, no syncope Respiratory: no cough, no shortness of breath, no wheezing, no home oxygen Gastrointestinal: abdominal pain, nausea, vomiting, no hematemesis, no BRBPR, no melena Rectal: no pain Female Genitourinary: deferred Musculoskeletal: no gait dysfunction, no joint pain, no muscle pain Integumentary: no rash, no pruritis, no jaundice Neurological: no head injury, no paralysis, no weakness Psychiatric: no anxiety Endocrine: no cold intolerance, no heat intolerance Hematologic/Lymphatic: no easy bruising, no easy bleeding, no lymphadenopathy Allergic/Immunologic: no wheezing Exam - Constitutional Vital Signs: Temp Pulse Resp BP Pulse Ox 98.5 F 92 H 16 132/97 99 11/28/17 08:31 11/28/17 08:31 11/28/17 08:31 11/28/17 08:31 11/28/17 08:31 General appearance: no acute distress, well-nourished - EENT Eyes: PERRL ENT: hearing intact, clear oral mucosa, dentition normal - Neck Neck: supple, normal ROM, no masses or JVD - Respiratory Respiratory effort: normal Respiratory: bilateral: CTA - Breasts Breasts: deferred - Cardiovascular Rhythm: regular Heart Sounds: Present: S1 & S2. Absent: gallop, rub Extremities: pulses intact, No edema, normal color, Full ROM - Gastrointestinal General gastrointestinal: Present: soft, tender (mild epigastric tenderness with no rebound or guarding. Healed old laparoscopic scars), non-distended, normal bowel sounds. Absent: hepatomegaly, splenomegaly, mass Rectal Exam: deferred - Genitourinary Female Genitourinary: deferred - Integumentary Integumentary: Present: clear, warm, dry - Neurologic Neurological: alert and oriented x3 - Psychiatric Psychiatric: appropriate mood/affect, intact judgment & insight, memory intact - Labs CBC & Chem 7: 11/28/17 05:36 11/28/17 05:36 Lab Results: Laboratory Results - last 24 hr 11/27/17 11/27/17 11/27/17 18:06 18:06 18:06 WBC 10.4 RBC 5.25 H Hgb 13.4 Hct 40.6 MCV 77 L MCH 26 L MCHC 33 RDW 15.6 H Plt Count 347 Lymph % (Auto) 27.3 [place] % (Auto) 10.8 H Eos % (Auto) 0.1 Baso % (Auto) 0.4 Lymph # 2.8 [place] # 1.1 H Eos # 0.0 Baso # 0.0 Seg Neutrophils % 61.4 Seg Neutrophils # 6.4 Sodium 140 Potassium 3.0 L Chloride 94.8 L Carbon Dioxide 25 Anion Gap 23 BUN 9 Creatinine 0.8 Estimated GFR > 60 BUN/Creatinine Ratio 11 Glucose 110 H Calcium 9.7 Magnesium Total Bilirubin 0.60 AST 66 H ALT 92 H Alkaline Phosphatase 67 Total Protein 8.7 H Albumin 4.5 Albumin/Globulin Ratio 1.1 Lipase 18 HCG, Qual Negative 11/27/17 11/28/17 11/28/17 18:06 05:36 05:36 WBC 8.9 RBC 4.77 Hgb 11.9 Hct 36.7 MCV 77 L MCH 25 L MCHC 33 RDW 15.3 H Plt Count 287 Lymph % (Auto) 27.9 [place] % (Auto) 13.1 H Eos % (Auto) 0.1 Baso % (Auto) 0.3 Lymph # 2.5 [place] # 1.2 H Eos # 0.0 Baso # 0.0 Seg Neutrophils % 58.6 Seg Neutrophils # 5.2 Sodium 142 Potassium 3.0 L Chloride 100.9 Carbon Dioxide 26 Anion Gap 18 BUN 6 L Creatinine 0.7 Estimated GFR > 60 BUN/Creatinine Ratio 9 Glucose 86 Calcium 8.8 Magnesium 1.40 L Total Bilirubin 0.50 AST 44 H ALT 80 H Alkaline Phosphatase 62 Total Protein 7.4 Albumin 3.9 Albumin/Globulin Ratio 1.1 Lipase HCG, Qual Assessment and Plan - Patient Problems (1) Elevated liver enzymes Current Visit: Yes Status: Acute Plan to address problem: Rule out CBD stones or stone passage. Alk phos and t. bili are not elevated making obstruction unlikely. MRCP has been ordered to reassess the CBD in light of prior GB and CBD stones in 2012. Viral hepatitis should be excluded. (2) Intractable nausea and vomiting Current Visit: Yes Status: Acute Plan to address problem: Rule out gastroenteritis, PUD
[2017-11-28] MEDS: DILAUDID IV PRN ×3 (13:25→21:09)
[2017-11-28] MEDS: ZOFRAN IV SCH ×3 (13:26→21:10)
[2017-11-28] MEDS: REGLAN IV PRN (20:27)
[2017-11-29] MEDS: ZOFRAN IV SCH ×6 (00:56→20:54)
[2017-11-29] MEDS: DILAUDID IV PRN ×6 (00:56→20:56)
[2017-11-29] MEDS: REGLAN IV PRN ×2 (04:06→11:42)
[2017-11-29 07:14] LABS: Basophils % (Auto) 0.6 % (0.0-1.8); Eosinophils # (Auto) 0.1 K/mm3 (0.0-0.4); Eosinophils % (Auto) 0.7 % (0.0-4.3); Hematocrit 35.6 % (30.3-42.9); Hemoglobin 11.7 gm/dl (10.1-14.3); Lymphocytes # (Auto) 2.1 K/mm3 (1.2-5.4); Lymphocytes % (Auto) 28.5 % (13.4-35.0); Mean Corpuscular HGB Conc 33 % (30-34); Mean Corpuscular Volume 77 fl (79-97); Monocytes # (Auto) 0.6 K/mm3 (0.0-0.8); Monocytes % (Auto) 8.4 % (0.0-7.3); Platelet Count 270 K/mm3 (140-440); Red Blood Count 4.62 M/mm3 (3.65-5.03); Red Cell Distribution Width 15.4 % (13.2-15.2)
[2017-11-29 07:15] LABS: Mean Corpuscular Hemoglobin 25 pg (28-32)
[2017-11-29 07:25] LABS: Alanine Aminotransferase 64 units/L (7-56); Albumin 3.7 g/dL (3.9-5); BUN/Creatinine Ratio 7; Blood Urea Nitrogen 4 mg/dL (7-17); Calcium 8.9 mg/dL (8.4-10.2); Hemolysis Index 7
--- NOTE | 2017-11-29 07:57 | Gastroenterology Progress Note ---
Assessment and Plan - Patient Problems (1) Elevated liver enzymes Current Visit: Yes Status: Acute Plan to address problem: Minimally elevated LFTs. The pattern is not suggestive of obstruction, but in light of prior CBD stones and MRCP has been ordered. OK to go home GI roldan if MRI is negative given resolving symptoms. (2) Intractable nausea and vomiting Current Visit: Yes Status: Acute Plan to address problem: Resolved n/v. Would advance diet post MRI and consider for discharge if the MRI is negative and if diet is tolerated. Subjective Date of service: 11/29/17 Principal diagnosis: abdominal pain, mildly elevated LFTs Interval history: Feels good overall. Minimal abdominal discomfort overnight. Objective - Constitutional Vitals: Temp Pulse Resp BP Pulse Ox 98.5 F 78 18 107/50 100 11/28/17 23:56 11/28/17 23:56 11/28/17 23:56 11/28/17 23:56 11/28/17 23:56 General appearance: no acute distress - EENT ENT: hearing intact, clear oral mucosa, dentition normal - Neck Neck: supple, normal ROM - Respiratory Respiratory effort: normal Respiratory: bilateral: CTA - Cardiovascular Rhythm: regular - Gastrointestinal General gastrointestinal: Present: soft, non-tender, non-distended, normal bowel sounds - Neurologic Neurological: alert and oriented x3 - Labs CBC & Chem 7: 11/29/17 04:58 11/29/17 04:58 Labs: Laboratory Results - last 24 hr 11/28/17 11/29/17 11/29/17 21:56 04:58 04:58 WBC 7.4 RBC 4.62 Hgb 11.7 Hct 35.6 MCV 77 L MCH 25 L MCHC 33 RDW 15.4 H Plt Count 270 Lymph % (Auto) 28.5 [place] % (Auto) 8.4 H Eos % (Auto) 0.7 Baso % (Auto) 0.6 Lymph # 2.1 [place] # 0.6 Eos # 0.1 Baso # 0.0 Seg Neutrophils % 61.8 Seg Neutrophils # 4.5 Sodium 137 Potassium 3.0 L Chloride 97.5 L Carbon Dioxide 26 Anion Gap 17 BUN 4 L Creatinine 0.6 L Estimated GFR > 60 BUN/Creatinine Ratio 7 Glucose 122 H POC Glucose 105 Calcium 8.9 Total Bilirubin 0.30 AST 24 ALT 64 H Alkaline Phosphatase 58 Total Protein 6.9 Albumin 3.7 L Albumin/Globulin Ratio 1.2
[2017-11-29] MEDS: PEPCID IV SCH ×2 (09:17→21:02)
[2017-11-29] MEDS: D5W/0.45% NACL/KCL 20 MEQ 20 MEQ/1,000 ML BAG IV SCH (09:22)
--- NOTE | 2017-11-29 14:52 | Magnetic Resonance Report ---
FINAL REPORT EXAM: MR ABDOMEN WO/W CON HISTORY: abdominal pain TECHNIQUE: MRI MRCP of the abdomen without and with gadolinium IV contrast. PRIORS: CT abdomen pelvis November 25, 2017. FINDINGS: Common bile duct is dilated measuring 8.8 mm. Low signal noted within proximal to distal common bile duct identified on series 8:53-60 the. There is mild dilatation of the left intrahepatic biliary duct with abnormal low signal. Some surrounding artifact identified suggesting pockets of gas within the biliary system which limits evaluation of the MR. Other areas of signal in the mid and distal common bile duct may represent stones, sludge, blood, or dense debris from an abscess. Because of the artifact it is difficult to evaluate for biliary wall thickening and enhancement. Cholangitis is not clearly evident not excluded. Lobulated early arterial enhancing lesion in the left liver on series 1101:41 measures 17.1 mm and another lesion on image 67 measures 27.3 mm. Early washout noted. Motion artifact degrades images but the stomach, spleen, pancreas, and adrenals are grossly unremarkable. Kidneys are grossly unremarkable. Limited images of the IVC and aorta are grossly unremarkable. Limited images of the bowel loops are grossly unremarkable. IMPRESSION: Dilated extrahepatic and left intrahepatic biliary ducts. Abnormal signal causing artifact is probably related to air. Other areas of low intense signal are nonspecific and may represent stones, sludge, blood products, or dense debris from abscess. No appreciable enhancement or signals noted along the biliary ducts suggest cholangitis but the diagnosis is not entirely excluded because of the air artifact. Early arterial enhancing lesions in the right and left liver are nonspecific. Differential diagnosis includes focal nodular hyperplasia, adenomas, tumors, and atypical hemangiomas. Adenomas favored.
[2017-11-29] MEDS: KCL 10MEQ/100ML 10 MEQ/100 ML BAG IV SCH ×2 (14:57→18:57)
--- NOTE | 2017-11-29 15:01 | Progress Note ---
Assessment and Plan Assessment and plan: Abdominal pain - Likely due to choledocholithiasis - Pain control - GI consult appreciated - MRI/MRCP showed dilated common bile duct and intrahepatic duct, ? calculi, ? blood Transaminitis - Resolved Hypokalemia - Repleted - We'll check BMP DVT prophylaxis - Lovenox Disposition - Continue inpatient care History Interval history: patient's abdominal pain is getting better, still asking IV medications Hospitalist Physical - Physical exam Narrative exam: Not in cardiopulmonary distress. The patient appeared well nourished and normally developed. Vital signs as documented. Head exam is unremarkable. No scleral icterus . Neck is without jugular venous distension, thyromegaly, or carotid bruits. Lungs are clear to auscultation. Cardiac exam reveals regular rate and Rhythm. First and second heart sounds normal. No murmurs, rubs or gallops. Abdominal exam reveals mild abdominal tenderness. Extremities are nonedematous and both femoral and pedal pulses are normal. [place]: Alert and oriented 3. No focal weakness. - Constitutional Vitals: Temp Pulse Resp BP Pulse Ox 98.8 F 90 18 150/100 100 11/29/17 11:49 11/29/17 11:49 11/29/17 11:49 11/29/17 11:49 11/29/17 11:49 Results - Labs CBC & Chem 7: 11/29/17 04:58 11/29/17 04:58 Labs: Laboratory Last Values WBC 7.4 K/mm3 (4.5-11.0) 11/29/17 04:58 RBC 4.62 M/mm3 (3.65-5.03) 11/29/17 04:58 Hgb 11.7 gm/dl (10.1-14.3) 11/29/17 04:58 Hct 35.6 % (30.3-42.9) 11/29/17 04:58 MCV 77 fl (79-97) L 11/29/17 04:58 MCH 25 pg (28-32) L 11/29/17 04:58 MCHC 33 % (30-34) 11/29/17 04:58 RDW 15.4 % (13.2-15.2) H 11/29/17 04:58 Plt Count 270 K/mm3 (140-440) 11/29/17 04:58 Lymph % (Auto) 28.5 % (13.4-35.0) 11/29/17 04:58 [place] % (Auto) 8.4 % (0.0-7.3) H 11/29/17 04:58 Eos % (Auto) 0.7 % (0.0-4.3) 11/29/17 04:58 Baso % (Auto) 0.6 % (0.0-1.8) 11/29/17 04:58 Lymph # 2.1 K/mm3 (1.2-5.4) 11/29/17 04:58 [place] # 0.6 K/mm3 (0.0-0.8) 11/29/17 04:58 Eos # 0.1 K/mm3 (0.0-0.4) 11/29/17 04:58 Baso # 0.0 K/mm3 (0.0-0.1) 11/29/17 04:58 Seg Neutrophils % 61.8 % (40.0-70.0) 11/29/17 04:58 Seg Neutrophils # 4.5 K/mm3 (1.8-7.7) 11/29/17 04:58 Sodium 137 mmol/L (137-145) 11/29/17 04:58 Potassium 3.0 mmol/L (3.6-5.0) L 11/29/17 04:58 Chloride 97.5 mmol/L (98-107) L 11/29/17 04:58 Carbon Dioxide 26 mmol/L (22-30) 11/29/17 04:58 Anion Gap 17 mmol/L 11/29/17 04:58 BUN 4 mg/dL (7-17) L 11/29/17 04:58 Creatinine 0.6 mg/dL (0.7-1.2) L 11/29/17 04:58 Estimated GFR > 60 ml/min 11/29/17 04:58 BUN/Creatinine Ratio 7 % 11/29/17 04:58 Glucose 122 mg/dL (65-100) H 11/29/17 04:58 POC Glucose 105 (70-105) 11/28/17 21:56 Calcium 8.9 mg/dL (8.4-10.2) 11/29/17 04:58 Magnesium 1.40 mg/dL (1.7-2.3) L 11/27/17 18:06 Total Bilirubin 0.30 mg/dL (0.1-1.2) 11/29/17 04:58 AST 24 units/L (5-40) 11/29/17 04:58 ALT 64 units/L (7-56) H 11/29/17 04:58 Alkaline Phosphatase 58 units/L (35-129) 11/29/17 04:58 Total Protein 6.9 g/dL (6.3-8.2) 11/29/17 04:58 Albumin 3.7 g/dL (3.9-5) L 11/29/17 04:58 Albumin/Globulin Ratio 1.2 % 11/29/17 04:58 Lipase 18 units/L (13-60) 11/27/17 18:06 HCG, Qual Negative (Negative) 11/27/17 18:06 - Imaging and Cardiology MRI - abdomen: image reviewed (dilated common bile duct and intrahepatic duct)
[2017-11-30] MEDS: ZOFRAN IV SCH ×6 (01:10→22:32)
[2017-11-30] MEDS: DILAUDID IV PRN ×6 (01:14→22:31)
[2017-11-30] MEDS ORDERED: K-DUR PO ONE ×2 (06:49→09:30)
[2017-11-30] MEDS: PEPCID IV SCH ×2 (09:02→22:31)
--- NOTE | 2017-11-30 14:03 | Gastroenterology Progress Note ---
Assessment and Plan - Patient Problems (1) Elevated liver enzymes Current Visit: Yes Status: Acute Plan to address problem: Mildly elevated LFTs and recurrent abdominal pain. The pattern is not obstructive, however, the MRI was abnormal suggesting possible sludge/small stones in the mid CBD along with air from prior ERCP and papillotomy in 2012. The study quality was not perfect and practically she will need ERCP to clear the duct of any potential stones and also evaluate the stomach for recurrent symptoms to rule out PUD/gastritis. The patient desires to have this done tomorrow in light of chronic recurrent symptoms. Will tentatively schedule ERCP tomorrow with my colleague, Dr. Huston who will be covering. The patient is familiar with ERCP as far as the technique, purpose , benefits, alternatives and potential risks including but not limited to pancreatitis, bleeding, infection, perforation and independent cardiopulmonary risks of anesthesia. (2) Intractable nausea and vomiting Current Visit: Yes Status: Acute Subjective Date of service: 11/30/17 Principal diagnosis: abdominal pain, mildly elevated LFTs Interval history: The patient reports nausea and limited intake. She reports that this is an exacerbation from her baseline. Abdominal discomfort is mild. Objective - Constitutional Vitals: Temp Pulse Resp BP Pulse Ox 99.3 F 94 H 16 118/69 99 11/30/17 07:10 11/30/17 07:10 11/30/17 07:10 11/30/17 07:10 11/30/17 07:10 General appearance: no acute distress - EENT ENT: hearing intact, clear oral mucosa, dentition normal - Respiratory Respiratory effort: normal Respiratory: bilateral: CTA - Cardiovascular Rhythm: regular - Extremities Extremities: pulses intact, No edema, normal color, Full ROM - Gastrointestinal General gastrointestinal: Present: soft, non-tender, non-distended, normal bowel sounds - Neurologic Neurological: alert and oriented x3 - Labs CBC & Chem 7: 11/29/17 04:58 11/29/17 04:58 - Imaging MRI: report reviewed (Mildly dilated CBD c/w prior cholecystectomy, air bubbles in distal duct c/w prior papillotomy (2012) and possible sludge or small stones in mid duct.), image reviewed
--- NOTE | 2017-11-30 16:29 | Progress Note ---
Assessment and Plan Assessment and plan: Abdominal pain - Likely due to choledocholithiasis - Pain control - GI consult appreciated - MRI/MRCP showed dilated common bile duct and intrahepatic duct, ? calculi, ? blood - ERCP for tomorrow Transaminitis - Resolved Hypokalemia - Repleted - We'll check BMP DVT prophylaxis - stop lovenox Disposition - Continue inpatient care History Interval history: patient's abdominal pain is getting better, nausea and vomiting is getting better. Hospitalist Physical - Physical exam Narrative exam: Not in cardiopulmonary distress. The patient appeared well nourished and normally developed. Vital signs as documented. Head exam is unremarkable. No scleral icterus . Neck is without jugular venous distension, thyromegaly, or carotid bruits. Lungs are clear to auscultation. Cardiac exam reveals regular rate and Rhythm. First and second heart sounds normal. No murmurs, rubs or gallops. Abdominal exam reveals mild abdominal tenderness. Extremities are nonedematous and both femoral and pedal pulses are normal. 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 No focal weakness. - Constitutional Vitals: Temp Pulse Resp BP Pulse Ox 99.3 F 94 H 16 118/69 99 11/30/17 07:10 11/30/17 07:10 11/30/17 07:10 11/30/17 07:10 11/30/17 07:10 Results - Labs CBC & Chem 7: 11/29/17 04:58 11/29/17 04:58 Labs: Laboratory Last Values WBC 7.4 K/mm3 (4.5-11.0) 11/29/17 04:58 RBC 4.62 M/mm3 (3.65-5.03) 11/29/17 04:58 Hgb 11.7 gm/dl (10.1-14.3) 11/29/17 04:58 Hct 35.6 % (30.3-42.9) 11/29/17 04:58 MCV 77 fl (79-97) L 11/29/17 04:58 MCH 25 pg (28-32) L 11/29/17 04:58 MCHC 33 % (30-34) 11/29/17 04:58 RDW 15.4 % (13.2-15.2) H 11/29/17 04:58 Plt Count 270 K/mm3 (140-440) 11/29/17 04:58 Lymph % (Auto) 28.5 % (13.4-35.0) 11/29/17 04:58 [place] % (Auto) 8.4 % (0.0-7.3) H 11/29/17 04:58 Eos % (Auto) 0.7 % (0.0-4.3) 11/29/17 04:58 Baso % (Auto) 0.6 % (0.0-1.8) 11/29/17 04:58 Lymph # 2.1 K/mm3 (1.2-5.4) 11/29/17 04:58 [place] [place] # 0.6 K/mm3 (0.0-0.8) 11/29/17 04:58 Eos # 0.1 K/mm3 (0.0-0.4) 11/29/17 04:58 Baso # 0.0 K/mm3 (0.0-0.1) 11/29/17 04:58 Seg Neutrophils % 61.8 % (40.0-70.0) 11/29/17 04:58 Seg Neutrophils # 4.5 K/mm3 (1.8-7.7) 11/29/17 04:58 Sodium 137 mmol/L (137-145) 11/29/17 04:58 Potassium 3.0 mmol/L (3.6-5.0) L 11/29/17 04:58 Chloride 97.5 mmol/L (98-107) L 11/29/17 04:58 Carbon Dioxide 26 mmol/L (22-30) 11/29/17 04:58 Anion Gap 17 mmol/L 11/29/17 04:58 BUN 4 mg/dL (7-17) L 11/29/17 04:58 Creatinine 0.6 mg/dL (0.7-1.2) L 11/29/17 04:58 Estimated GFR > 60 ml/min 11/29/17 04:58 BUN/Creatinine Ratio 7 % 11/29/17 04:58 Glucose 122 mg/dL (65-100) H 11/29/17 04:58 POC Glucose 105 (70-105) 11/28/17 21:56 Calcium 8.9 mg/dL (8.4-10.2) 11/29/17 04:58 Magnesium 1.40 mg/dL (1.7-2.3) L 11/27/17 18:06 Total Bilirubin 0.30 mg/dL (0.1-1.2) 11/29/17 04:58 AST 24 units/L (5-40) 11/29/17 04:58 ALT 64 units/L (7-56) H 11/29/17 04:58 Alkaline Phosphatase 58 units/L (35-129) 11/29/17 04:58 Total Protein 6.9 g/dL (6.3-8.2) 11/29/17 04:58 Albumin 3.7 g/dL (3.9-5) L 11/29/17 04:58 Albumin/Globulin Ratio 1.2 % 11/29/17 04:58 Lipase 18 units/L (13-60) 11/27/17 18:06 HCG, Qual Negative (Negative) 11/27/17 18:06
[2017-11-30] MEDS ORDERED: LOVENOX SUB-Q SCH (22:00)
[2017-12-01 01:04] LABS: BUN/Creatinine Ratio 14; Blood Urea Nitrogen 11 mg/dL (7-17); Calcium 8.6 mg/dL (8.4-10.2); Hemolysis Index 12
[2017-12-01] MEDS: ZOFRAN IV SCH ×3 (01:49→09:14)
[2017-12-01] MEDS: DILAUDID IV PRN ×5 (01:49→16:25)
[2017-12-01] MEDS: D5W/0.45% NACL/KCL 20 MEQ 20 MEQ/1,000 ML BAG IV SCH (04:49)
[2017-12-01 06:55] LABS: BUN/Creatinine Ratio 12; Blood Urea Nitrogen 11 mg/dL (7-17); Calcium 8.7 mg/dL (8.4-10.2); Hemolysis Index 4
[2017-12-01] MEDS: PEPCID IV SCH (09:14)
[2017-12-01] MEDS ORDERED: WATER FOR IRRIG STERILE IR ONE (11:35)
[2017-12-01] MEDS ORDERED: NACL 0.9% 100 ML ONE (11:36)
[2017-12-01] MEDS ORDERED: NACL 0.9% 1000 ML 1,000 ML IV SCH ×2 (12:00→15:00)
[2017-12-01] MEDS ORDERED: NACL 0.9% 1000 ML 1,000 ML ONE (12:39)
[2017-12-01] MEDS ORDERED: DIPRIVAN 10 MG/ML IV ONE ×2 (13:56)
--- NOTE | 2017-12-01 13:56 | Anesthesia Day of Surgery ---
Anesthesia Day of Surgery - Day of Surgery Patient Examined: Yes Patient H&P Reviewed: Yes Patient is NPO: Yes
--- NOTE | 2017-12-01 13:56 | Anesthesia Consultation ---
Anesthesia Consult and Med Hx Date of service: 12/01/17 - Airway Anesthetic Teeth Evaluation: Good ROM Head & Neck: Adequate Mental/Hyoid Distance: Adequate Mallampati Class: Class II Intubation Access Assessment: Good - Pulmonary Exam CTA: Yes - Cardiac Exam Cardiac Exam: No Murmur - Pre-Operative Health Status ASA Pre-Surgery Classification: ASA2 Proposed Anesthetic Plan: MAC - Pulmonary Hx Smoking: Yes (pack of cigars a week) Hx Asthma: No COPD: No Hx Pneumonia: No - Cardiovascular System Hx Angina: No - Central Nervous System Hx Psychiatric Problems: No - Gastrointestinal Hx Gastroesophageal Reflux Disease: Yes (gerd. none this am) - Endocrine Hx End Stage Renal Disease: No - Hematic Hx Anemia: Yes (does not take iron) - Other Systems Hx Substance Use: Yes (MARIJUANA LAST USED 2 WEEKS AGO)
[2017-12-01] MEDS ORDERED: VERSED IV ONE (13:57)
[2017-12-01] MEDS ORDERED: TRIPLE ANTIBIOTIC TP ONE ×2 (14:38→14:48)
--- NOTE | 2017-12-01 14:42 | Post Operative Note ---
Pre-op diagnosis: Abnormal MRCP Post-op diagnosis: other (Dilated post-CCX biliary tree) Findings: 1. Widely patent post-sphincterotomy ampulla 2. CBD dilated to 14 mm, s/p CCX. No filling defects except a few air bubbles. Duct swept empirically with 12 mm balloon. Procedure: ERCP Anesthesia: MAC Surgeon: WM CARDENAS Estimated blood loss: none Pathology: none Condition: stable Disposition: floor (Monitor for improvement. Likely viral process.)
[2017-12-01 15:17] VITALS: BP 118/79
--- NOTE | 2017-12-01 16:07 | Discharge Summary ---
Providers - Providers Date of Admission: 11/27/17 21:17 Attending physician: CAROL ANN BOYKIN MD 11/28/17 09:18 Consult to Physician [CONS] Routine Consulting Provider: TIAGO NUNES Reason For Exam: abdominal pain Place consult to:: [facility] Notified:: answering service Phone number called:: / Was contact made?: Yes If yes, spoke with:: lala Time called:: 11:09 Primary care physician: DAVINA PAREDES Hospitalization Reason for admission: Abdominal pain Condition: Stable Pertinent studies: MRI dilated extrahepatic and left intrahepatic biliary ducts. Abnormal signal causing artifact is probably related to air. other areas of low intensity signal are nonspecific and made her present stones, sludge, blood products, or dense debris from abscess. ERCP was negative Procedures: ERCP negative Hospital course: 22-year-old female with a past medical history previous cholecystectomy and ERCP induced pancreatitis presents to the hospital with complaints of abdominal pain, nausea, vomiting, and diarrhea 4 days. Patient was seen here by me on the for similar symptoms. CT abdomen and pelvis did not reveal any acute findings. Patient's symptoms improved prior to discharge she was discharged on [place], Macrobid, Zofran, Phenergan, and tramadol. Patient was not able afford the rectal Phenergan but was able to fill the rest of the medication. Despite taking these medications and patient continues to have nausea, vomiting, and by mouth intolerance. Patient complains of generalized weakness. Continues to have right-sided abdominal tenderness. There is complaints of hematemesis and melena. No fever reported prior to arrival. Patient was nothing by mouth and was treated for the pain. MRI and ERCP was as stated above. Patient showed improvement, abdominal pain subsided, her diet resumed. GI consult appreciated. Patient was hemodynamically stable at the time of discharge. Patient's advised to follow up with primary care doctor. Prescription for appropriate medications were given at the time of discharge. Patient's questions and concerns were addressed at bedside. Disposition: - TO HOME OR SELFCARE Time spent for discharge: 31 minutes - Discharge Diagnoses (1) Abdominal pain Status: Acute (2) Dehydration Status: Acute (3) Diarrhea Status: Acute (4) Elevated liver enzymes Status: Acute (5) Failure of outpatient treatment Status: Acute (6) Hypokalemia Status: Acute (7) Intractable nausea and vomiting Status: Acute Core Measure Documentation - Palliative Care Palliative Care/ Comfort Measures: Not Applicable - Core Measures Any of the following diagnoses?: none Exam - Physical Exam Narrative exam: Not in cardiopulmonary distress. The patient appeared well nourished and normally developed. Vital signs as documented. Head exam is unremarkable. No scleral icterus . Neck is without jugular venous distension, thyromegaly, or carotid bruits. Lungs are clear to auscultation. Cardiac exam reveals regular rate and Rhythm. First and second heart sounds normal. No murmurs, rubs or gallops. Abdominal exam soft nontender abdomen. Extremities are nonedematous and both femoral and pedal pulses are normal. 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 No focal weakness. - Constitutional Vitals: Temp Pulse Resp BP Pulse Ox 98.4 F 88 19 118/79 99 12/01/17 14:38 12/01/17 15:08 12/01/17 15:08 12/01/17 15:08 12/01/17 15:08 Plan Activity: no restrictions Weight Bearing Status: Full Weight Bearing Diet: regular, advance as tolerated Follow up with: DAVINA PAREDES MD [Primary Care Provider] - 7 Days Prescriptions: Ondansetron [Zofran ODT TAB] 4 mg PO Q8HR PRN #20 tab.rapdis PRN Reason: Nausea And Vomiting oxyCODONE [Roxicodone TAB] 5 mg PO Q6HR PRN #15 tablet PRN Reason: Pain
[2017-12-01] MEDS ORDERED: DILAUDID IV ONE ×2 (16:11→17:00)
--- NOTE | 2017-12-01 16:48 | Operative Report ---
PROCEDURE: ERCP. PREOPERATIVE DIAGNOSIS: Abnormal MRCP. POSTOPERATIVE DIAGNOSIS: Normal dilated post-cholecystectomy biliary tree and prior papillotomy. SEDATION: MAC by Anesthesia. HISTORY: The patient is a 22-year-old woman status post ERCP and sphincterotomy in 2012. She came in with nausea and vomiting, had mild elevation of her liver enzymes. She underwent an MRCP, which showed questionable filling defect within the mid common bile duct. DESCRIPTION OF PROCEDURE: The risks and benefits were explained and consent was obtained. The patient was placed on abdomen on fluoroscopy table and sedated. A [employer] video duodenoscope was passed through the mouth and oropharynx into the descending duodenum. Scope was then gradually withdrawn with close inspection of mucosa until the major papilla was visualized. Selective cannulation of the common bile duct was readily achieved using the Olympus sphincterotome. FINDINGS: 1. Major papilla, status post prior papillotomy and widely patent. 2. Biliary tree is dilated at approximately 14 mm and status post cholecystectomy. No clear filling defects were identified and there were no strictures. A 12 mm balloon was placed at the bifurcation and swept the duct with no resistance and no return of stone or debris. The patient tolerated the procedure well without immediate complication. IMPRESSION: Normal post-cholecystectomy dilated biliary tree with prior papillotomy. RECOMMENDATIONS: 1. Monitor for complications. 2. The patient's symptoms likely due to viral gastroenteritis or similar process. We would consider a trial of Ativan to help her while she spontaneously improves. JOB# [id number] HRC/NTS
--- NOTE | 2017-12-03 08:06 | Fluoroscopy Report ---
ERCP: Elevated LFTs with abnormal MRCP. Examination performed in the absence of the attending radiologist. Injection of contrast is made into the CBD which appears moderately dilated as do the common hepatic ducts. The hepatic branches do not appear dilated. Other than what appeared to be some air bubbles are no filling defects identified in the visualized biliary system. Cholecystectomy clips are noted. The procedure sheet indicates that a balloon was dilated within the duct but no other procedure performed. Impressions: No calculus identified. Nonspecific ductal dilatation.
== END 2017-12-01 16:55 | disposition home or self-care (01) | DRG 446 ==
LOC: ED 17:50 → 3A 21:17
PROVIDERS: ADMIT Internal Medicine Geriatric Medicine; ATTEND Internal Medicine
PROC: 0FJB8ZZ Inspection of Hepatobiliary Duct, Via Natural or Artificial Opening Endoscopic (ICD-10-PCS; principal; 2017-12-01)
PROC: BF101ZZ Fluoroscopy of Bile Ducts using Low Osmolar Contrast (ICD-10-PCS; 2017-12-01)
DX: K83.8 Other specified diseases of biliary tract (principal); E87.6 Hypokalemia; E86.0 Dehydration; R19.7 Diarrhea, unspecified; F17.200 Nicotine dependence, unspecified, uncomplicated; K21.9 Gastro-esophageal reflux disease without esophagitis; F12.90 Cannabis use, unspecified, uncomplicated; Z90.49 Acquired absence of other specified parts of digestive tract; Z88.5 Allergy status to narcotic agent; Z79.899 Other long term (current) drug therapy
CPT/HCPCS: 36415; 74183; 74330; 80048; 80053; 82962; 83690; 83735; 84703; 85025; 96361; 96374; 96375; A6250; A9577; C1726; J1170; J1200; J2250; J2270; J2405; J2704; J2765; J3480; J7030; J7042; Q9967

== ENCOUNTER 2018-03-03 20:26 | Emergency (ER) | payer BC ==
[2018-03-03 21:37] VITALS: BP 100/45
[2018-03-04] MEDS ORDERED: MOTRIN PO ONE ×2 (02:42)
--- NOTE | 2018-03-04 02:47 | Emergency Department Report ---
ED ENT HPI - General Chief complaint: Earache Stated complaint: LEFT EAR PAIN Time Seen by Provider: 03/04/18 02:42 Source: patient Mode of arrival: Ambulatory Limitations: No Limitations - History of Present Illness Initial comments: 23-year-old Afro-Gabonese female comes in for complaint of left-sided swelling and tooth pain for the last 2 days. Patient reports that she has a wisdom tooth is given her problems on the lower jaw. Patient has taken no pain medication. She currently takes no medications she's allergic to hydrocodone and oxycodone. MD complaint: tooth pain -: days(s) (2) Location: tooth # (17) Severity scale (0 -10): 9 Quality: aching Consistency: constant Improves with: none Worsens with: eating - Related Data Previous Rx's Medication Instructions Recorded Last Taken Type HYDROcodone/APAP 5-325 [[place] 1 each PO Q6HR PRN #12 tablet 11/25/17 11/26/17 Rx 5/325] traMADol [Ultram 50 MG tab] 50 mg PO Q6HR PRN #15 tablet 11/25/17 11/26/17 Rx Ondansetron [Zofran ODT TAB] 4 mg PO Q8HR PRN #20 tab.rapdis 12/01/17 Unknown Rx oxyCODONE [Roxicodone TAB] 5 mg PO Q6HR PRN #15 tablet 12/01/17 Unknown Rx Clindamycin [Clindamycin CAP] 300 mg PO Q8H #30 cap 03/04/18 Unknown Rx Ibuprofen [Motrin 600 MG tab] 600 mg PO Q8H PRN #30 tablet 03/04/18 Unknown Rx Allergies Allergy/AdvReac Type Severity Reaction Status Date / Time hydrocodone Allergy Unknown Verified 03/03/18 21:33 oxycodone [Oxycodone] AdvReac Nausea Verified 03/03/18 21:33 ED Dental HPI - General Chief complaint: Earache Stated complaint: LEFT EAR PAIN Time Seen by Provider: 03/04/18 02:42 Source: patient Mode of arrival: Ambulatory Limitations: No Limitations - Related Data Previous Rx's Medication Instructions Recorded Last Taken Type HYDROcodone/APAP 5-325 [[place] 1 each PO Q6HR PRN #12 tablet 11/25/17 11/26/17 Rx 5/325] traMADol [Ultram 50 MG tab] 50 mg PO Q6HR PRN #15 tablet 11/25/17 11/26/17 Rx Ondansetron [Zofran ODT TAB] 4 mg PO Q8HR PRN #20 tab.rapdis 12/01/17 Unknown Rx oxyCODONE [Roxicodone TAB] 5 mg PO Q6HR PRN #15 tablet 12/01/17 Unknown Rx Clindamycin [Clindamycin CAP] 300 mg PO Q8H #30 cap 03/04/18 Unknown Rx Ibuprofen [Motrin 600 MG tab] 600 mg PO Q8H PRN #30 tablet 03/04/18 Unknown Rx Allergies Allergy/AdvReac Type Severity Reaction Status Date / Time hydrocodone Allergy Unknown Verified 03/03/18 21:33 oxycodone [Oxycodone] AdvReac Nausea Verified 03/03/18 21:33 ED Review of Systems ROS: Stated complaint: LEFT EAR PAIN Other details as noted in HPI Constitutional: denies: chills, fever Eyes: denies: eye pain, eye discharge, vision change ENT: dental pain Respiratory: denies: cough, shortness of breath, wheezing Cardiovascular: denies: chest pain, palpitations Endocrine: no symptoms reported Gastrointestinal: denies: abdominal pain, nausea, diarrhea Genitourinary: denies: urgency, dysuria, discharge Musculoskeletal: denies: back pain, joint swelling, arthralgia Skin: denies: rash, lesions Neurological: denies: headache, weakness, paresthesias Psychiatric: denies: anxiety, depression Hematological/Lymphatic: denies: easy bleeding, easy bruising ED Past Medical Hx - Past Medical History Previous Medical History?: Yes Hx Congestive Heart Failure: No Hx Diabetes: No Hx Asthma: No Hx COPD: No Hx HIV: No Additional medical history: Chronic abdominal pain, pancreatitis - Surgical History Past Surgical History?: Yes Hx Cholecystectomy: Yes Additional Surgical History: Surgery was Sunday 08/26 - Social History Smoking Status: Current Some Day Smoker Substance Use Type: Alcohol - Medications Home Medications: Home Medications Medication Instructions Recorded Confirmed Last Taken Type HYDROcodone/APAP 5-325 [[place] 1 each PO Q6HR PRN #12 tablet 11/25/17 11/27/17 Rx 5/325] traMADol [Ultram 50 MG tab] 50 mg PO Q6HR PRN #15 tablet 11/25/17 11/27/1711/26 Rx Ondansetron [Zofran ODT TAB] 4 mg PO Q8HR PRN #20 tab.rapdis 12/01/17 Unknown Rx oxyCODONE [Roxicodone TAB] 5 mg PO Q6HR PRN #15 tablet 12/01/17 Unknown Rx Clindamycin [Clindamycin CAP] 300 mg PO Q8H #30 cap 03/04/18 Unknown Rx Ibuprofen [Motrin 600 MG tab] 600 mg PO Q8H PRN #30 tablet 03/04/18 Unknown Rx ED Physical Exam - General Limitations: No Limitations General appearance: alert, in no apparent distress - Head Head exam: Present: atraumatic, normocephalic - Eye Eye exam: Present: normal appearance - ENT ENT exam: Present: mucous membranes moist - Expanded ENT Exam Expanded Teeth exam: Present: dental tenderness # (17), gingival enlargement (around tooth #17) Throat exam: Negative: tonsillar erythema, tonsillomegaly - Neck Neck exam: Present: normal inspection, tenderness, full ROM, lymphadenopathy ( left neck) - Respiratory Respiratory exam: Present: normal lung sounds bilaterally. Absent: respiratory distress - Cardiovascular Cardiovascular Exam: Present: regular rate, normal rhythm. Absent: systolic murmur, diastolic murmur, rubs, gallop - GI/Abdominal GI/Abdominal exam: Present: soft, normal bowel sounds - Extremities Exam Extremities exam: Present: normal inspection - Back Exam Back exam: Present: normal inspection - Neurological Exam Neurological exam: Present: alert, oriented X3 - Psychiatric Psychiatric exam: Present: normal affect, normal mood - Skin Skin exam: Present: warm, dry, intact, normal color. Absent: rash ED Course Vital Signs 03/03/18 21:34 Temperature 98.6 F Pulse Rate 78 Respiratory 18 Rate Blood Pressure 100/45 O2 Sat by Pulse 100 Oximetry ED Medical Decision Making - Medical Decision Making Patient has been evaluated by this provider fast track. Discussed the patient appears to her wisdom tooth on the left lower jaw is partially impacted and there is some swelling around the gingiva and tenderness at the jaw line. Discussed the patient and give her ibuprofen and place her on clindamycin and referral to dental. Patient verbalized understanding. Critical care attestation.: If time is entered above; I have spent that time in minutes in the direct care of this critically ill patient, excluding procedure time. ED Disposition Clinical Impression: Impacted third molar tooth Disposition: DC-01 TO HOME OR SELFCARE Is pt being admited?: No Does the pt Need Aspirin: No Condition: Stable Instructions: Toothache (ED) Additional Instructions: Please take pain medication and antibiotics as prescribed. Please follow-up with the dentist the next 2 days. Prescriptions: Clindamycin [Clindamycin CAP] 300 mg PO Q8H #30 cap Ibuprofen [Motrin 600 MG tab] 600 mg PO Q8H PRN #30 tablet PRN Reason: Pain Referrals: PRIMARY CARE, [Primary Care Provider] - 3-5 Days [facility] [Outside] - 3-5 Days [facility] [Outside] - 3-5 Days Forms: Work/School Release Form(ED)
== END 2018-03-04 02:55 | disposition home or self-care (01) ==
LOC: ED 20:26
DX: K01.1 Impacted teeth (principal); F17.200 Nicotine dependence, unspecified, uncomplicated; Z90.49 Acquired absence of other specified parts of digestive tract; Z88.8 Allergy status to other drugs, medicaments and biological substances
CPT/HCPCS: 99282

== ENCOUNTER 2021-01-06 10:41 | Emergency (ER) | payer SELFPAY ==
[2021-01-06 10:42] VITALS: BP 121/71
[2021-01-06] MEDS ORDERED: ONDANSETRON 4 MG/2 ML INJ IV ONE (10:53)
[2021-01-06] MEDS ORDERED: SODIUM CHLORIDE 0.9% 1000 ML 1,000 ML IV ONE ×2 (10:53→13:02)
--- NOTE | 2021-01-06 10:57 | Emergency Department Report ---
ED Abdominal Pain HPI - General Chief Complaint: Abdominal Pain Stated Complaint: ABD PAINS Time Seen by Provider: 01/06/21 10:46 Source: patient Mode of arrival: Ambulatory Limitations: No Limitations - History of Present Illness Initial Comments: 25-year-old -[place] female presents to the emergency room for abdominal pain x1 week with nausea vomiting and constipation. Patient states that the pain is stabbing aching and sharp and comes in waves. She denies any diarrhea. Patient denies any dysuria but does report urinary urgency but no frequency. Patient denies any hematochezia hematochezia or hematuria. Last menstrual period was 12/31/2020 she is 1 para 0. Had cholecystectomy done 2012 or 2011. She does admit that she suffers from intermittent constipation. Patient reports that she smokes weed and drinks alcohol. She states that she seen her doctors in the past for the same complaint and they seem to not able to find a diagnoses. MD Complaint: abdominal pain Onset/Timin -: week(s) Location: diffuse Severity scale (0 -10): 9 Quality: cramping, stabbing, aching, sharp Consistency: constant Improves With: nothing Worsens With: nothing Associated Symptoms: nausea, vomiting, constipation. denies: diarrhea, fever, dysuria, hematemesis, hematochezia, hematuria - Related Data LMP Date: 12/31/20 Previous Rx's Medication Instructions Recorded Last Taken Type HYDROcodone/APAP 5-325 [[place] 1 each PO Q6HR PRN #12 tablet 11/25/17 11/26/17 Rx 5/325] traMADoL [Ultram 50 MG tab] 50 mg PO Q6HR PRN #15 tablet 11/25/17 11/26/17 Rx Ondansetron [Zofran ODT TAB] 4 mg PO Q8HR PRN #20 tab.rapdis 12/01/17 Unknown Rx oxyCODONE [roxiCODONE] 5 mg PO Q6HR PRN #15 tablet 12/01/17 Unknown Rx Clindamycin [Clindamycin CAP] 300 mg PO Q8H #30 cap 03/04/18 Unknown Rx Ibuprofen [Motrin 600 MG tab] 600 mg PO Q8H PRN #30 tablet 03/04/18 Unknown Rx Ondansetron [Zofran Odt] 4 mg PO Q8HR #12 tab.rapdis 01/06/21 Unknown Rx Potassium Chloride [K-Dur] 20 meq PO QDAY 7 Days #7 tablet 01/06/21 Unknown Rx Allergies Allergy/AdvReac Type Severity Reaction Status Date / Time hydrocodone Allergy Unknown Verified 03/03/18 21:33 oxycodone [Oxycodone] AdvReac Nausea Verified 03/03/18 21:33 ED Review of Systems ROS: Stated complaint: ABD PAINS Other details as noted in HPI Comment: All other systems reviewed and negative ED Past Medical Hx - Past Medical History Previous Medical History?: No - Surgical History Past Surgical History?: Yes Hx Cholecystectomy: Yes - Social History Smoking Status: Never Smoker Substance Use Type: None - Medications Home Medications: Home Medications Medication Instructions Recorded Confirmed Last Taken Type HYDROcodone/APAP 5-325 [[place] 1 each PO Q6HR PRN #12 tablet 11/25/17 11/27/17 11/26/17 Rx 5/325] traMADoL [Ultram 50 MG tab] 50 mg PO Q6HR PRN #15 tablet 11/25/17 11/27/17 11/26/17 Rx Ondansetron [Zofran ODT TAB] 4 mg PO Q8HR PRN #20 tab.rapdis 12/01/17 Unknown Rx oxyCODONE [roxiCODONE] 5 mg PO Q6HR PRN #15 tablet 12/01/17 Unknown Rx Clindamycin [Clindamycin CAP] 300 mg PO Q8H #30 cap 03/04/18 Unknown Rx Ibuprofen [Motrin 600 MG tab] 600 mg PO Q8H PRN #30 tablet 03/04/18 Unknown Rx Ondansetron [Zofran Odt] 4 mg PO Q8HR #12 tab.rapdis 01/06/21 Unknown Rx Potassium Chloride [K-Dur] 20 meq PO QDAY 7 Days #7 tablet 01/06/21 Unknown Rx ED Physical Exam - General Limitations: No Limitations General appearance: alert, in no apparent distress - Head Head exam: Present: atraumatic, normocephalic - Eye Eye exam: Present: normal appearance - ENT ENT exam: Present: mucous membranes moist - Neck Neck exam: Present: normal inspection, full ROM - Respiratory Respiratory exam: Present: normal lung sounds bilaterally. Absent: respiratory distress - Cardiovascular Cardiovascular Exam: Present: regular rate, normal rhythm. Absent: systolic murmur, diastolic murmur, rubs, gallop - GI/Abdominal GI/Abdominal exam: Present: soft, tenderness, normal bowel sounds. Absent: distended - Extremities Exam Extremities exam: Present: normal inspection, full ROM - Back Exam Back exam: Present: normal inspection - Neurological Exam Neurological exam: Present: alert, oriented X3, normal gait - Psychiatric Psychiatric exam: Present: normal affect, normal mood - Skin Skin exam: Present: warm, dry, intact, normal color. Absent: rash ED Course Vital Signs 01/06/21 10:40 Temperature 98.8 F Pulse Rate 109 H Respiratory 20 Rate Blood Pressure 121/71 O2 Sat by Pulse 98 Oximetry ED Medical Decision Making - Lab Data Result diagrams: 01/06/21 11:08 01/06/21 11:08 - Medical Decision Making 25-year-old -[place] female presents to the emergency room for abdominal pain x1 week with nausea vomiting and constipation. Patient states that the pain is stabbing aching and sharp and comes in waves. She denies any diarrhea. Patient denies any dysuria but does report urinary urgency but no frequency. Patient denies any hematochezia hematochezia or hematuria. Last menstrual period was 12/31/2020 she is 1 para 0. Had cholecystectomy done 2012 or 2011. She does admit that she suffers from intermittent constipation. Patient reports that she smokes weed and drinks alcohol. She states that she seen her doctors in the past for the same complaint and they seem to not able to find a diagnoses. CBC CMP UDS UA lipase hCG, IV normal saline Zofran 4 mg. Critical care attestation.: If time is entered above; I have spent that time in minutes in the direct care of this critically ill patient, excluding procedure time. ED Disposition Clinical Impression: Hypokalemia, Dehydration Abdominal pain Qualifiers: Abdominal location: generalized Qualified Code(s): R10.84 - Generalized abdominal pain Nausea and vomiting Qualifiers: Vomiting type: unspecified Vomiting Intractability: intractable Qualified Code(s): R11.2 - Nausea with vomiting, unspecified Disposition: DC-01 TO HOME OR SELFCARE Is pt being admited?: No Does the pt Need Aspirin: No Condition: Stable Instructions: Abdominal Pain (ED), Hypokalemia, Abdominal Pain, Adult, [id number] Prescriptions: Potassium Chloride [K-Dur] 20 meq PO QDAY 7 Days #7 tablet Ondansetron [Zofran Odt] 4 mg PO Q8HR #12 tab.ryandis
[2021-01-06 11:49] LABS: Albumin 4.8 g/dL (3.9-5); Calcium 9.8 mg/dL (8.4-10.2)
[2021-01-06] MEDS ORDERED: POTASSIUM CHLORIDE ER 20 MEQ TAB PO ONE (11:57)
[2021-01-06] MEDS ORDERED: DICYCLOMINE 20 MG TAB PO ONE (11:58)
[2021-01-06 12:23] LABS: Basophils % (Auto) 0.5 % (0.0-1.8); Eosinophils % (Auto) 0.2 % (0.0-4.3); Hematocrit 41.6 % (30.3-42.9); Hemoglobin 14.1 gm/dl (10.1-14.3); Lymphocytes # (Auto) 2.6 K/mm3 (1.2-5.4); Lymphocytes % (Auto) 27.5 % (13.4-35.0); Mean Corpuscular HGB Conc 34 % (30-34); Mean Corpuscular Volume 84 fl (79-97); Monocytes % (Auto) 10.5 % (0.0-7.3); Platelet Count 224 K/mm3 (140-440); Red Blood Count 4.96 M/mm3 (3.65-5.03); Red Cell Distribution Width 12.9 % (13.2-15.2)
[2021-01-06] MEDS ORDERED: KETOROLAC 30 MG/1 ML INJ IV ONE (12:53)
[2021-01-06 13:27] LABS: Amphetamine Screen,Urine Negative; Benzodiazepines Screen,Urine Negative; Cocaine Screen,Urine Negative; Methadone Screen,Urine Negative; Opiate Screen,Urine Negative
[2021-01-06 13:46] LABS: Bacteria,Urine 2+ /HPF (Negative); Bilirubin,Urine NEG (Negative); Blood,Urine NEG (Negative); Color,Urine Yellow (Yellow); Mucus,Urine FEW /HPF; RBC,Urine < 1.0 /HPF (0.0-6.0); Urobilinogen,Urine < 2.0 mg/dL (<2.0)
[2021-01-06 13:47] LABS: HCG Qualitative,Urine Negative (Negative)
[2021-01-06 14:03] LABS: Cannabinoid Screen,Urine Positive
[2021-01-06 14:36] LABS: Alanine Aminotransferase 17 units/L (7-56)
[2021-01-06 14:58] LABS: Bilirubin,Direct < 0.2 mg/dL (0-0.2)
== END 2021-01-06 15:33 | disposition home or self-care (01) ==
LOC: EDUNIT# → ED 10:41
DX: E86.0 Dehydration (principal); E87.6 Hypokalemia; R11.2 Nausea with vomiting, unspecified; R10.84 Generalized abdominal pain; Z79.899 Other long term (current) drug therapy; Z88.8 Allergy status to other drugs, medicaments and biological substances; Z90.49 Acquired absence of other specified parts of digestive tract
CPT/HCPCS: 36415; 80053; 80076; 80307; 81001; 81025; 83690; 85025; 96361; 96374; 96375; 99283; J1885; J2405; J7030